=== PATIENT | female | born 1930 | race Caucasian/White ===

== ENCOUNTER 2017-05-29 08:00 | Outpatient (CLI) | payer MEDICAID, MEDICARE | END 2017-05-29 08:01 | disposition home or self-care (01) | LOC: BICRAD 08:00 | PROVIDERS: ATTEND Internal Medicine Endocrinology, Diabetes & Metabolism | DX: Z13.820 Encounter for screening for osteoporosis (principal); M81.0 Age-related osteoporosis without current pathological fracture; M47.26 Other spondylosis with radiculopathy, lumbar region; M41.86 Other forms of scoliosis, lumbar region; Z78.0 Asymptomatic menopausal state | CPT/HCPCS: 77080 ==

== ENCOUNTER 2018-01-24 14:48 | Day surgery (SDC) | payer MEDICARE, MEDICAID ==
[2018-01-24] MEDS ORDERED: Sodium Chloride 0.9% 10 ML ONE (14:55)
[2018-01-24 15:22] VITALS: BP 145/71; TEMP 98.6
[2018-01-24] MEDS ORDERED: Zoledronic Acid/Mannitol&Water 5 MG in Premix Bag 1 BAG IVPB SCH (16:00)
== END 2018-01-24 16:48 | disposition home or self-care (01) ==
LOC: ONC/OP 14:48
PROVIDERS: ATTEND Internal Medicine Rheumatology
DX: M81.0 Age-related osteoporosis without current pathological fracture (principal); Z88.5 Allergy status to narcotic agent; Z88.0 Allergy status to penicillin
CPT/HCPCS: 96365; A4216; J3489; J7050

== ENCOUNTER 2018-11-12 10:48 | Outpatient (CLI) | payer MEDICARE, MEDICAID ==
--- NOTE | 2018-11-12 11:54 | BD ---
DEXA BONE DENSITOMETRY: (Dual energy x-ray absorptiometry) DATE: 11/12/2018: 88-year old white female for age-related, post-menopausal, osteoporosis screening. weight: 140 lbs height: 64.5 in. age of menopause: 40 FINDINGS: There is severe levoscoliosis of the lumbar spine, resulting in asymmetrically severe, right-sided sc lerotic degenerative changes, which elevate the bone mineral density, thereby resulting in under-estimation of the fracture risk. The bone mineral density (BMD) is given in grams per square centimeter (g/cm2): LUMBAR SPINE: BMD (g/cm^2) T score Z score L1: 1.054 0.6 does not register L2: 1.133 1.0 does not register L3: 1.201 1.1 does not register L4: 1.194 1.2 does not register Total: 1.147 0.9 does not register HIP: BMD (g/cm^2) T score Z score Femoral neck: 0.582 -2.4 does not register Total: 0.630 -2.6 does not register IMPRESSION: 1) Although the bone mineral density of the lumbar spine registers in the normal range compared to a young adult, this is elevated due to the severe sclerotic degenerative changes related to the severe levoscoliosis and spondylosis. Therefore, the true fracture risk for the lumbar spine cannot b e accurately assessed. 2) The bone mineral density of the femoral neck is osteoporotic. Fracture risk is high.
== END 2018-11-12 10:49 | disposition home or self-care (01) ==
LOC: BICMAMMO 10:48
PROVIDERS: ATTEND Internal Medicine Rheumatology
DX: M81.0 Age-related osteoporosis without current pathological fracture (principal); M47.816 Spondylosis without myelopathy or radiculopathy, lumbar region; M41.9 Scoliosis, unspecified
CPT/HCPCS: 77080

== ENCOUNTER 2019-04-12 14:35 | Inpatient (IN) | payer MEDICARE, MEDICAID ==
[2019-04-12 15:47] LABS: INR-International Normal Ratio 1.2; PTT 32.1 SEC (22.9-36.1)
[2019-04-12 15:48] LABS: Troponin I Less than 0.010 ng/mL (< 0.028)
[2019-04-12] MEDS ORDERED: Enoxaparin Sodium 60 MG/0.6 ML SYRINGE ONE (15:57)
[2019-04-12] MEDS ORDERED: Acetaminophen 500 MG TAB ONE (15:57)
[2019-04-12] MEDS ORDERED: Senokot S 8.6-50 MG TAB PO PRN (17:59)
[2019-04-12] MEDS ORDERED: Diltiazem 125 MG in Sodium Chloride 0.9% 100 ML IVPB SCH (18:15)
[2019-04-12] MEDS ORDERED: traMADol HCl 50 MG TAB ONE (18:45)
[2019-04-12 19:05] LABS: Troponin I Less than 0.010 ng/mL (< 0.028)
[2019-04-12] MEDS: Sodium Chloride 0.9% 1,000 ML IV SCH (21:00)
[2019-04-12] MEDS: Acetaminophen 325 MG TAB PO PRN (21:06)
[2019-04-13 00:09] VITALS: BMI 16.9
[2019-04-13 04:31] LABS: #Eosinphils 0.1 thou/uL (0.0-0.7); #Monocytes 0.6 thou/uL (0.11-0.59); #Neutrophils 4.3 thou/uL (1.40-6.50); %Basophils 0.7 % (0.0-1.0); %Eosinophils 1.3 % (0.0-10.0); %Lymphocytes 17.3 % (21.0-51.0); %Monocytes 9.3 % (0.0-10.0); %Neutrophils 71.4 % (42.0-75.0); Hemoglobin 11.6 g/dL (12.0-16.0); Mean Corpuscular HGB CONC 33.2 g/dL (32.0-36.0); Mean Corpuscular Hemoglobin 29.1 pg (27.0-31.0); Mean Corpuscular Volume 87.7 fL (78.0-98.0); Mean Platelet Volume 7.1 fL (7.4-10.4); Platelet Count 256 thou/uL (130-400); RBC Distribution Width 13.3 % (11.5-14.5); Red Blood Cell (RBC) Count 3.99 mill/uL (4.20-5.40)
[2019-04-13 04:52] LABS: Anion Gap 16 mmol/L (10-20); BUN (Urea Nitrogen) 18 mg/dL (9.8-20.1); Calc. Creatinine Clearance 37 mL/min (70-130); Calcium 9.2 mg/dL (7.8-10.44); Carbon Dioxide 25 mmol/L (23-31); Chloride 103 mmol/L (98-107); Estimated GFR-MDRD 59; Potassium 3.9 mmol/L (3.5-5.1); Sodium 140 mmol/L (136-145)
[2019-04-13 04:55] LABS: Glucose 49 mg/dL (83-110)
[2019-04-13 07:16] LABS: Magnesium 1.8 mg/dL (1.6-2.6); Phosphorus 3.3 mg/dL (2.3-4.7)
[2019-04-13] MEDS ORDERED: traMADol HCl 50 MG TAB PO PRN (07:51)
[2019-04-13] MEDS ORDERED: Meclizine HCl 25 MG TAB PO PRN (07:51)
[2019-04-13] MEDS ORDERED: ALPRAZolam 0.25 MG TAB PO PRN (09:17)
[2019-04-13] MEDS: Enoxaparin Sodium 60 MG/0.6 ML SYRINGE SC SCH ×2 (09:23→20:50)
[2019-04-13] MEDS: Loratadine 10 MG TAB PO SCH (09:24)
[2019-04-13] MEDS: Hydroxychloroquine Sulfate 200 MG TAB PO SCH (09:24)
[2019-04-13] MEDS: Acetaminophen 325 MG TAB PO PRN (09:25)
[2019-04-13] MEDS: Gabapentin 100 MG CAP PO SCH ×2 (09:25→20:49)
[2019-04-13] MEDS: Aspirin Chewable 81 MG TAB PO SCH (09:26)
[2019-04-13 10:13] LABS: Hemoglobin 12.3 g/dL (12.0-16.0); Platelet Count 253 thou/uL (130-400)
--- NOTE | 2019-04-13 11:35 | PDOC.HOSPP ---
- Subjective Subjective: Has felt anxious this morning. Says she feels like her chest is "caving in". - Objective Vital Signs & Weight: Vital Signs (12 hours) Temp Pulse Resp BP Pulse Ox 04/13/19 10:59 97.4 F L 87 17 167/77 H 65 L 04/13/19 07:32 97.9 F 99 18 128/75 93 L 04/13/19 03:19 98.3 F 82 14 109/57 L 94 L 04/13/19 00:52 96 Weight Weight 114 lb 4.8 oz I&O: 04/12/19 04/13/19 04/14/19 06:59 06:59 06:59 Intake Total 845 Output Total 100 Balance 745 Result Diagrams: 04/13/19 09:57 04/13/19 09:57 Additional Labs: Accuchecks 04/13/19 04/13/19 04/13/19 08:04 07:31 05:45 POC Glucose 143 H 143 H 107 Hospitalist ROS - Medication Medications: Active Medications Generic Name Dose Route Start Last Admin Trade Name Freq PRN Reason Stop Dose Admin Acetaminophen 650 mg 04/12/19 17:56 04/13/19 09:25 Tylenol PO 650 mg Q4H PRN Administration Headache/Fever/Mild Pain (1-3) Alprazolam 0.25 mg 04/13/19 09:17 04/13/19 09:57 Xanax PO 0.25 mg TIDPRN PRN Administration Anxiety Aspirin 81 mg 04/13/19 09:00 04/13/19 09:26 Aspirin Chewable PO 81 mg DAILY STEFFEN Administration Cholecalciferol 1,000 units 04/13/19 09:00 04/13/19 09:24 Vitamin D3 PO 1,000 units DAILY STEFFEN Administration Enoxaparin Sodium 50 mg 04/13/19 09:00 04/13/19 09:23 Lovenox SC 50 mg 0900,2100 STEFFEN Administration Gabapentin 100 mg 04/13/19 09:00 04/13/19 09:25 Neurontin PO 100 mg BID STEFFEN Administration Hydroxychloroquine Sulfate 200 mg 04/13/19 09:00 04/13/19 09:24 Plaquenil PO 200 mg DAILY STEFFEN Administration Sodium Chloride 1,000 mls @ 50 mls/hr 04/12/19 18:30 04/12/19 21:00 Normal Saline 0.9% IV 1,000 mls .Q20H STEFFEN Administration Levofloxacin 500 mg 04/13/19 06:00 04/13/19 05:31 Levaquin PO 500 mg 0600 STEFFEN Administration Loratadine 10 mg 04/13/19 09:00 04/13/19 09:24 Claritin PO 10 mg DAILY STEFFEN Administration Meclizine HCl 25 mg 04/13/19 07:51 04/13/19 09:24 Antivert PO 25 mg TIDPRN PRN Administration Dizziness Sodium Chloride 10 ml 04/12/19 21:00 04/13/19 09:23 Flush - Normal Saline IVF 10 ml Q12HR STEFFEN Administration - Exam General Appearance: NAD, awake alert Neck: supple, symmetric, no JVD, no thyromegaly, no lymphadenopathy, no carotid bruit Heart: no murmur, no gallops, no rubs, normal peripheral pulses, irregular Respiratory: CTAB, no wheezes, no rales, no ronchi, normal chest expansion, no tachypnea, normal percussion Gastrointestinal: soft, non-tender, non-distended, normal bowel sounds, no palpable masses, no hepatomegaly, no splenomegaly, no bruit Skin: normal turgor Neurological: cranial nerve grossly intact Neurological - other findings: Parkinson like tremor of UE's. Psychiatric - other findings: anxious. Hosp A/P (1) Atrial fibrillation with rapid ventricular response Code(s): I48.91 - UNSPECIFIED ATRIAL FIBRILLATION Status: Acute (2) HTN (hypertension) Code(s): I10 - ESSENTIAL (PRIMARY) HYPERTENSION Status: Acute (3) Anxiety Code(s): F41.9 - ANXIETY DISORDER, UNSPECIFIED Status: Acute (4) Rib fracture Code(s): S22.39XA - FRACTURE OF ONE RIB, UNSP SIDE, INIT FOR CLOS FX Status: Acute - Plan Rate is controlled. Weaning per dilt gtt per cards. Had an episode of hypoglycemia this morning. Unclear if this is related to her feeling of anxiety. VSS and blood glucose is improved. EKG ordered by cards. Continue home meds. Looks like she had some type of "delusional" disorder going back to 2017. Question whether it might be Lewy Body dementia given the tremor. Will discuss with the patient's family when they arrive. Discussed code status. She would prefer to wait until her son gets her. She was clear she did not want to be on long-term support. At some point there was concern about aspiration pneumonitis. This was seen on CT done on 04/05 for rib fx. RUL. No evidence of that. On Levaquin. Will continue for now, but can likely DC if nothing more develops by tomorrow. Recent fall with rib fx. PRN pain meds.
--- NOTE | 2019-04-13 13:54 | PDOC.FMACP ---
Advance Care Planning - Problem (1) Atrial fibrillation with rapid ventricular response Status: Acute Code(s): I48.91 - UNSPECIFIED ATRIAL FIBRILLATION (2) HTN (hypertension) Status: Acute Code(s): I10 - ESSENTIAL (PRIMARY) HYPERTENSION (3) Anxiety Status: Acute Code(s): F41.9 - ANXIETY DISORDER, UNSPECIFIED (4) Rib fracture Status: Acute Code(s): S22.39XA - FRACTURE OF ONE RIB, UNSP SIDE, INIT FOR CLOS FX (5) Tremor Status: Acute Code(s): R25.1 - TREMOR, UNSPECIFIED - Note Participants: patient, family, surrogate decision-maker Summary: Advanced Care Planning was discussed. The diagnosis, prognosis and goals of care were discussed. Appropriate forms and documentation to accomplish the goals of care were discussed. All questions were answered. Patient has a directive. Her son is her POA. I reviewed the Directive and we all discussed her end of life wishes. She does desire full resuscitative efforts, but does not want to be on long-term life support. The appropriate documents were entered into her record. Time Spent (mins): 17
--- NOTE | 2019-04-13 14:30 | EKG ---
Test Reason : Blood Pressure : / mmHG Vent. Rate : 079 BPM Atrial Rate : 079 BPM P-R Int : 132 ms QRS Dur : 082 ms QT Int : 406 ms P-R-T Axes : 064 044 053 degrees QTc Int : 465 ms Sinus rhythm with occasional Premature ventricular complexes Otherwise normal ECG Confirmed by PENG GLEZ, ESVIN ([id number]), mapping editor ROXANNE MESA ([id number]) on 04/13/2019 2:29:42 PM Referred By: Confirmed By:ESVIN KHOURY MD
[2019-04-13] MEDS: Sodium Chloride 0.9% 1,000 ML IV SCH (17:07)
[2019-04-13] MEDS: traMADol HCl 50 MG TAB PO PRN (18:08)
[2019-04-13] MEDS ORDERED: risperiDONE 1 MG TAB PO SCH (21:00)
[2019-04-13] MEDS ORDERED: Diltiazem HCl SR 60 mg Capsule PO SCH (21:00)
--- NOTE | 2019-04-13 22:42 | CON ---
DATE OF CONSULTATION: HISTORY OF PRESENT ILLNESS: Jaleesa Villasenor is an 88-year-old white female, who was admitted with atrial fibrillation with fast ventricular response. She was evaluated by Dr. Munoz in 2007 for chest discomfort, had a normal Cardiolite and he has not seen her since that time. She went to the hospital in [place] with feeling a racing heartbeat and some mild chest pressure and shortness of breath. She was given 20 mg Cardizem IV, placed on a Cardizem drip 5 mg/hour and transferred. She has since converted to sinus rhythm. She denies any previous history of cardiac arrhythmias. It is of note that approximately 1 week ago she fell and sustained a rib fracture. She states she has had several falls in the past. PAST MEDICAL HISTORY: Hyperparathyroidism, hypertension, hyperlipidemia. PAST SURGICAL HISTORY: Cholecystectomy, history of splenic artery aneurysm, hernia repair, hysterectomy. SOCIAL HISTORY: She does not smoke or drink. FAMILY HISTORY: Unremarkable. MEDICATIONS: 1. Amlodipine 5 mg daily. 2. Aspirin 81 daily. 3. Flonase nasal spray. 4. Gabapentin 100 b.i.d. 5. Plaquenil 1 tablet daily. 6. Claritin 10 mg daily. 7. Meclizine 25 t.i.d. p.r.n. 8. Aleve q.6 hours p.r.n. 9. Prilosec 20 daily. 10. Risperdal 1 mg at bedtime. 11. Tramadol p.r.n. ALLERGIES: ORANGE JUICE, CODEINE, PENICILLIN, PHENOBARBITAL. REVIEW OF SYSTEMS: Unremarkable except as noted above. PHYSICAL EXAMINATION: VITAL SIGNS: 174/84, pulse of 86 (she has not received any amlodipine today). PERRL. NECK: Supple. CHEST: Clear. CARDIAC: S1 and S2 normal without any S3 or S4. Carotid upstrokes normal without bruits. ABDOMEN: Normal bowel sounds without tenderness or organomegaly. EXTREMITIES: Revealed no clubbing, cyanosis, or edema. NEUROLOGIC: Grossly intact. LABORATORY DATA: EKG reveals atrial fibrillation with fast ventricular response of 108 per minute. Cardiac enzymes are unremarkable. Hemoglobin 11.6, hematocrit 35.0, white count 6000, platelets 256,000. Sodium 140, potassium 3.9, chloride 103, carbon dioxide 25, BUN 18, creatinine 0.90, glucose this morning was 49. Cortisol is normal. BNP 139.0. IMPRESSION: 1. New onset atrial fibrillation, converted with intravenous Cardizem. 2. History of falls, most recently with rib fracture. 3. Hypertension. 4. Hyperparathyroidism. PLAN: Ms. Villasenor has CHADS-VASc score of greater than 2; however, she is a poor anticoagulation candidate with history of falls. To continue Lovenox while she is here in the hospital would be appropriate. However, I would not send her home on anticoagulation. Since this is her 1st episode, we would discontinue the amlodipine and instead will place her on Cardizem in the hopes of controlling atrial fibrillation rates in the future, if she should so have that. Echocardiogram will be reviewed. Job ID: [id number]
[2019-04-14] MEDS: traMADol HCl 50 MG TAB PO PRN ×2 (05:43→12:39)
[2019-04-14 06:02] LABS: Hemoglobin 11.9 g/dL (12.0-16.0); Platelet Count 239 thou/uL (130-400)
[2019-04-14] MEDS: Loratadine 10 MG TAB PO SCH (08:24)
[2019-04-14] MEDS: Gabapentin 100 MG CAP PO SCH (08:24)
[2019-04-14] MEDS: Aspirin Chewable 81 MG TAB PO SCH (08:24)
[2019-04-14] MEDS: Hydroxychloroquine Sulfate 200 MG TAB PO SCH (08:24)
[2019-04-14] MEDS: Dronedarone HCl 400 MG TAB PO SCH ×2 (08:24→16:09)
[2019-04-14] MEDS: Enoxaparin Sodium 60 MG/0.6 ML SYRINGE SC SCH (08:25)
[2019-04-14 11:35] VITALS: TEMP 98.2
[2019-04-14] MEDS: Sodium Chloride 0.9% 1,000 ML IV SCH (12:40)
[2019-04-14 17:01] VITALS: BP 130/63
--- NOTE | 2019-04-15 08:18 | HP ---
CHIEF COMPLAINT: Dizziness and shortness of breath. HISTORY OF PRESENT ILLNESS: The patient is a very pleasant 88-year-old female with a history of hypertension, who presents to the hospital with complaints of dizziness and shortness of breath going on for the past 1 week. The patient states that she fell last week on Monday with a mechanical fall and sustained a left rib fracture. She does have a history of osteoporosis and scoliosis. The patient states that prior to Monday, she has been having on and off dizziness, lightheadedness and shortness of breath at times. The patient states that when she walks, her shortness of breath improves. She denies any chest tightness, nausea, vomiting, or diarrhea. The patient stated that however for the past couple of days, she has been feeling more lightheaded and short of breath. The home health nurse came in yesterday, found the patient's heart rate to be elevated; however, that improved as the day went by. They decided to just wait and see if her symptoms would improve. However, they didn't and the patient started having elevated heart rate and became more lightheaded. At this time, she was brought into the [place] ER. The patient then was found to be in atrial fibrillation with rapid ventricular response. She was treated appropriately and transferred to our hospital for further evaluation. The patient says that she has been constipated and took some laxative and that on top that prune juice and has been having significant amount of bowel movements and however she feels that she has not been keeping up with her fluids either. PAST MEDICAL HISTORY: She has a history of hypertension, osteoporosis, and scoliosis. PAST SURGICAL HISTORY: She has had a hernia repair. She has had hysterectomy, cholecystectomy, and vein repair. REVIEW OF SYSTEMS: All negative except for the ones mentioned above in the HPI. FAMILY HISTORY: No significant family history. SOCIAL HISTORY: She denies any smoking, alcohol, or drug use. Full code. She did have secondhand smoking. PHYSICAL EXAMINATION: VITAL SIGNS: Temperature of 97.7, respiratory rate 20, heart rate 77, oxygen saturation 94% on room air, blood pressure 142/72. GENERAL: She is awake, alert, oriented x3. Does not appear in any distress. HEENT: Normocephalic and atraumatic. No lymphadenopathy noted. Pupils are equal and reactive to light. CV: S1 and S2 present. No murmurs, rubs, or gallops. ABDOMEN: Soft and nontender. Bowel sounds are present x2. EXTREMITIES: No edema. NEUROVASCULAR: No focal deficits noted. SKIN: She does have on her right second toe, a small skin opening and on her left toe, at the tip of the toe, she has a small erythema spot. LABORATORY DATA: Her laboratory results are as of the following: Her WBC is 5.0, hemoglobin of 11.9, hematocrit of 37.1. No bandemia noted. BNP was 139, potassium was 3.3, sodium of 141, BUN of 11, creatinine of 0.90. Calcium was 10.5. Chest x-ray did not show any acute abnormalities. Her troponins were 0.022. She did have a CT done last week, which indicated some pneumonitis, or patchy opacities in the right upper lobe, possible aspiration and also indicated a rib fracture on her left 7th rib. ASSESSMENT AND PLAN: The patient is a very pleasant 88-year-old female, who presents to the hospital with shortness of breath. 1. Atrial fibrillation with rapid ventricular response. The patient currently is rate controlled based on her CHADS Vasc score. I will start her on 1 mg/kg Lovenox, which can be changed to 2 and oral anticoagulation when okay with Cardiology. We will look at her echocardiogram and check a TSH. I will hydrate her gently with 1 L and continue to monitor. 2. Aspiration pneumonia, possible. She is currently not hypoxic. No elevated white count. I will get Speech to evaluate her. The patient does have scoliosis, which could be causing her to have some issues with swallowing. The patient does state that she coughs at times when she eats. I will continue her home medications of Levaquin that was prescribed by her primary care. 3. Hypertension. We will continue to monitor. 4. Hypercalcemia, which is mild at 10.5. I think this is possibly due to dehydration, I will start her on some gentle hydration. 5. Deep venous thrombosis prophylaxis. The patient is already on Lovenox. Job ID: [id number]
--- NOTE | 2019-04-15 23:16 | EKG ---
Test Reason : Blood Pressure : / mmHG Vent. Rate : 091 BPM Atrial Rate : 079 BPM P-R Int : 000 ms QRS Dur : 080 ms QT Int : 394 ms P-R-T Axes : 000 044 054 degrees QTc Int : 484 ms Multifocal atrial tachycardia Abnormal ECG When compared with ECG of 12-APR-2019 15:49, Multifocal atrial tachycardia has replaced Sinus rhythm Confirmed by SUNDAR ROTH M.D. ([id number]) on 04/15/2019 11:15:37 PM Referred By: LEAH Confirmed By:SUNDAR ROTH M.D.
--- NOTE | 2019-04-16 07:43 | DIS ---
DATE OF ADMISSION: 04/12/2019 DATE OF DISCHARGE: 04/14/2019 DISCHARGE DIAGNOSES: 1. New onset atrial fibrillation with rapid ventricular response. 2. Hypertension. 3. Left rib fracture secondary to recent mechanical fall. 4. Hypercalcemia with a history of hyperparathyroidism. 5. Hypokalemia. 6. Hypoglycemia. 7. Moderate mitral regurgitation. 8. Diastolic dysfunction. HISTORY OF PRESENT ILLNESS: This patient is 88-year-old female who presented initially to the emergency department in [place]. The patient was at home and had been experiencing some lightheadedness, weakness, and dizziness. Home health nurse evaluated the patient, noted tachycardia and sent her to the Emergency Department in [place]. There, she was found to be in atrial fibrillation with rapid ventricular response. She was started on a Cardizem bolus and drip and subsequently had converted to sinus rhythm and was transferred to this facility. Here, she remained on a Cardizem drip until seen by Cardiology. At that point, she was transitioned off and over to Multaq and initially had some anticoagulation. Had a conversation with the patient and her sons regarding the risk and benefit of anticoagulation in this situation; however, Cardiology recommended against it given her recent fall and rib fracture that had been confirmed on imaging just one week prior. She had an echocardiogram performed which revealed normal ejection fraction at 50% to 55% with a suggestion of diastolic dysfunction and moderate aortic regurgitation. Symptomatically, the patient was back to baseline and felt to be stable for discharge. Of note, the patient did originally have a mild hypercalcemia on admission, which improved with some hydration. She had mild hypokalemia that improved with repletion and one episode of hypoglycemia of unclear etiology. PHYSICAL EXAMINATION: VITAL SIGNS: On the day of discharge, temperature was 98.2, pulse 69, respirations 17, O2 saturation 97% on room air, BP is 130/63. GENERAL APPEARANCE: Age appropriate. No distress. Very pleasant. HEART: Regular without murmurs. LUNGS: Clear bilaterally. ABDOMEN: Soft, nontender, and nondistended. Positive bowel sounds. No masses. No organomegaly. EXTREMITIES: No cyanosis, clubbing, or edema. DISPOSITION: The patient is discharged to home. ACTIVITY: She is to have activity as tolerated. DIET: She will be on a heart healthy diet. She had OT/PT. MEDICATIONS: She will be on: 1. Diltiazem CD 240 mg daily. 2. Multaq 400 mg daily. She will continue with: 1. Omeprazole 20 mg daily. 2. Loratadine 10 mg a day. 3. Norvasc 5 mg daily. 4. Vitamin D3 1000 units daily. 5. Gabapentin 100 mg b.i.d. 6. Aspirin 81 mg daily. 7. Tylenol 650 p.r.n. 8. Meclizine 25 mg q.6 p.r.n. 9. Hydroxychloroquine one p.o. daily, 200 mg. 10. Flonase daily. 11. Naproxen p.r.n. 12. Tramadol p.r.n. 13. Risperdal 1 mg at bedtime. FOLLOWUP: She is to follow up with Dr. Valles in 7 days, Dr. Gardner in 2 to 3 weeks. Time spent in discharge activities was greater than 30 min. Job ID: [id number] MTDD
--- NOTE | 2019-04-16 23:06 | PQF ---
[employer] Accounting Specialist [employer] Reports [employer] MAYA Hagen KARISHMA [id number] [facility]288 [id number] CLINICAL DOCUMENTATION CLARIFICATION FORM: POST DISCHARGE Addendum to original discharge summary date: ____ Late entry note date: __ DATE: 04/16/2019 ATTN:ALFREDITO THURSTON10 Please exercise your independent, professional judgment in responding to the clarification form. Clinical indicators are provided on the bottom of this form for your review Please check appropriate box(s) to clarify if the following diagnosis has been ruled in or ruled out: Aspiration pneumonia [ ] Ruled in diagnosis [ ] Continue to treat [ ] Resolved [ x ] Ruled out diagnosis [ ] Cannot rule out diagnosis [ ] Other diagnosis [ ] Unable to determine For continuity of documentation, please document condition throughout progress notes and discharge summary. Thank You. CLINICAL INDICATORS - SIGNS / SYMPTOMS / LABS - Aspiration pneumonia, possible , she is currently not hypoxic- H&P, BOBBICHEMA PAYTONALFREDITO - Temp:97.7, RR:20, HR:77-H&P, [facility] WBC: 5.0-H&P, [facility] - patient does have scoliosis, which could be causing her to have some issue with swallowing-H&P, BOBBIALFREDITO PAYTON RISK FACTORS -hx of rib fracture- Hospital PN, 04/13, Maggie Carl MD -[facility]: Scoliosis-H&P, BOBBIALFREDITO PAYTON TREATMENTS - Levaquin-H&P, 04/12, [facility] (This form is maintained as a part of the permanent medical record) 2014 [employer]. All Rights Reserved Rakiyhannan Kumaresan [not provided] [not provided] MTDD
--- NOTE | 2019-04-18 10:36 | PQF ---
[employer] Operator Crystal Reports Winform ViewerMAYA BARROS KARISHMA [id number] [address] [place] [address] [id number] CLINICAL DOCUMENTATION CLARIFICATION FORM: POST DISCHARGE Addendum to original discharge summary date: ____ Late entry note date: __ DATE: 04/18/2019 ATTN:ALFREDITO THURSTON Please exercise your independent, professional judgment in responding to the clarification form. Clinical indicators are provided on the bottom of this form for your review Please check appropriate box(s): BMI < 20 with associated diagnosis of: (check one) [ ] Under weight [ ] Other diagnosis [ ] Unable to determine For continuity of documentation, please document condition throughout progress notes and discharge summary. Thank You. BMI < 18.5Under weight = 18.5 - 24.9Healthy = 25.0 - 29.9Slightly Overweight = 30.0 - 34.9Obese/Class I = 35.0 - 39.9Severely Obese/Class II = 40.0 and OverMorbidly Obese/Class III CLINICAL INDICATORS - SIGNS / SYMPTOMS / LABS -BMI of 16.9-FNS assessment, 04/13 -Height: 1.75m, Current weight: 51.85kg-FNS assessment, 04/13 -Average PO intake: 75% breakfast-FNS assessment, 04/13 Risk factors: -PSH: Cholecystectomy-H&P, 04/12, ALFREDITO THURSTON TREATMENTS: -Diet order: Heart healthy-FNS assessment, 04/13 [employer] Operator [employer] Reports Winform Viewer (This form is maintained as a part of the permanent medical record) 2014 [employer]. All Rights Reserved Aidan Ko [not provided] [not provided] RUDYD
== END 2019-04-14 18:00 | disposition home health service (06) | DRG 309 ==
LOC: ERS 14:35 → 2NO 19:54
PROVIDERS: ADMIT Internal Medicine; ATTEND Internal Medicine
DX: I48.91 Unspecified atrial fibrillation (principal); S22.32XA Fracture of one rib, left side, initial encounter for closed fracture; I10 Essential (primary) hypertension; R29.6 Repeated falls; M81.0 Age-related osteoporosis without current pathological fracture; M41.9 Scoliosis, unspecified; E86.0 Dehydration; F41.9 Anxiety disorder, unspecified; E78.5 Hyperlipidemia, unspecified; G31.83 Neurocognitive disorder with Lewy bodies; F02.80 Dementia in other diseases classified elsewhere, unspecified severity, without behavioral disturbance, psychotic disturbance, mood disturbance, and anxiety; K21.9 Gastro-esophageal reflux disease without esophagitis; E16.2 Hypoglycemia, unspecified; R25.1 Tremor, unspecified; E83.52 Hypercalcemia; Z90.710 Acquired absence of both cervix and uterus; Z90.49 Acquired absence of other specified parts of digestive tract; Z87.81 Personal history of (healed) traumatic fracture; Z88.0 Allergy status to penicillin; Z88.8 Allergy status to other drugs, medicaments and biological substances; Z91.018 Allergy to other foods
CPT/HCPCS: 36415; 36416; 80048; 82533; 82565; 83735; 84100; 85014; 85018; 85025; 85049; 85610; 85730; 93005; 93010; 93306; 96365; 96366; 96372; J1650; J3490; J8597

== ENCOUNTER 2019-12-09 13:26 | Outpatient (CLI) | payer MEDICARE, MEDICAID ==
--- NOTE | 2019-12-09 14:09 | BD ---
BONE DENSITOMETRY USING DEXA: HISTORY: Osteoporosis. FINDINGS: Lumbar Spine: BMD (g/cm2) L1 0.985 T-Score: 0.0 L2 1.093 T-Score: 0.6 L3 1.154 T-Score: 0.6 L4 1.069 T-Score: 0.1 L1-L4 1.076 T-Score: 0.3 Femoral Neck: 0.536 T-Score: -2.8 Total Femur: 9,586 T-Score: -2.8 There has been interval reduction of 6.2% in the BMD of the lumbar spine and a reduction of 5.4% in t he BMD of the proximal femur. Impression: Osteoporosis. POS: DINO
== END 2019-12-09 13:27 | disposition home or self-care (01) ==
LOC: BICMAMMO 13:26
PROVIDERS: ATTEND Internal Medicine Rheumatology
DX: M81.0 Age-related osteoporosis without current pathological fracture (principal)
CPT/HCPCS: 77080

== ENCOUNTER 2020-04-20 14:42 | Emergency (ER) | payer MEDICARE, MEDICAID, OTHER ==
[~2020-04-20 14:42] MED LIST: Iopamidol-370 76% 500 ML 1 ML ONE
[2020-04-20 15:19] LABS: #Lymphocytes 0.6 thou/uL (1.20-3.40); #Monocytes 0.9 thou/uL (0.11-0.59); #Neutrophils 5.2 thou/uL (1.40-6.50); %Eosinophils 0.5 % (0.0-10.0); %Lymphocytes 9.2 % (21.0-51.0); %Monocytes 13.8 % (0.0-10.0); %Neutrophils 76.5 % (42.0-75.0); Hemoglobin 11.1 g/dL (12.0-16.0); Mean Corpuscular HGB CONC 31.7 g/dL (32.0-36.0); Mean Corpuscular Hemoglobin 27.4 pg (27.0-31.0); Mean Corpuscular Volume 86.2 fL (78.0-98.0); Mean Platelet Volume 7.8 fL (7.4-10.4); Platelet Count 203 thou/uL (130-400); RBC Distribution Width 14.7 % (11.5-14.5); Red Blood Cell (RBC) Count 4.05 mill/uL (4.20-5.40); White Blood Cell (WBC) Count 6.8 thou/uL (4.8-10.8)
--- NOTE | 2020-04-20 15:22 | RAD ---
Chest one view HISTORY: Dyspnea. COMPARISON: 04/12/2019. FINDINGS: Cardiac silhouette is magnified by projection. Mediastinum is midline with aortic calcifica tion. Right hemidiaphragm remains markedly elevated. No lobar consolidation or evidence of pneumothorax. There are prominent degenerative changes of the s houlders. Degenerative changes and scoliotic curvature of the thoracic spine again demonstrated. Metallic clips overlie the gallbladder fossa. Oval dystrophic calcification projecting over the left abdomen is partially visualized. IMPRESSION : Right hemidiaphragm elevation and other chronic-type findings appear stable. Atherosclerosis.
[2020-04-20 15:40] LABS: ALT (SGPT) 16 U/L (8-55); AST (SGOT) 18 U/L (5-34); Albumin 3.6 g/dL (3.4-4.8); Alkaline Phosphatase 74 U/L (40-110); Anion Gap 14 mmol/L (10-20); BUN (Urea Nitrogen) 29 mg/dL (9.8-20.1); Bilirubin, Total 0.2 mg/dL (0.2-1.2); Calc. Creatinine Clearance 0 mL/min (70-130); Calcium 8.2 mg/dL (7.8-10.44); Carbon Dioxide 28 mmol/L (23-31); Chloride 104 mmol/L (98-107); Estimated GFR-MDRD 47; Globulin 2.6 g/dL (2.4-3.5); Glucose 93 mg/dL (83-110); Protein, Total 6.2 g/dL (6.0-8.3); Sodium 142 mmol/L (136-145)
[2020-04-20] MEDS ORDERED: Ketorolac Tromethamine 30 MG/ML VIAL ONE (16:36)
--- NOTE | 2020-04-20 17:10 | CT ---
CT PULMONARY ANGIOGRAM WITH IV CONTRAST AND 3D POSTPROCESSING: Date; 04/20/2020 HISTORY: Shortness of breath. FINDINGS: There is good contrast opacification of the pulmonary arterial vasculature without filling defects to suggest pulmonary embolism. There are vascular calcifications without aneurysm or dissection of the thoracic aorta. There is elevation of the right hemidiaphragm. There is a small left pleural effusion with adjacent atelectatic changes. There are mild patchy ground-glass opacities bilaterally. No pneu mothoraces or lobar consolidation seen. There are degenerative changes and scoliosis of the spine. Up per abdominal tomograms demonstrate changes of cholecystectomy. There is a peripherally calcified 2.3 cm splenic artery aneurysm. IMPRESSION: No CT evidence of pulmonary embolism. POS: OFF
[2020-04-21 11:25] LABS: SARS-CoV-2 MS2 Positive; SARS-CoV-2 N Gene Positive; SARS-CoV-2 S Gene Positive; SARS-CoV-2 by NAA DETECTED (NotDetected); SARS-CoV-2 orf1ab Positive
== END 2020-04-20 18:08 ==
LOC: ERS 14:42
DX: U07.1 COVID-19 (principal); E21.3 Hyperparathyroidism, unspecified; K21.9 Gastro-esophageal reflux disease without esophagitis; E78.5 Hyperlipidemia, unspecified; I10 Essential (primary) hypertension; M81.0 Age-related osteoporosis without current pathological fracture; I71.4 Abdominal aortic aneurysm, without rupture; Z79.899 Other long term (current) drug therapy; Z79.82 Long term (current) use of aspirin
CPT/HCPCS: 71045; 71275; 80053; 83880; 84484; 85025; 85379; 93005; U0003; 36415; 87635; 96374; J1885; Q9967

== ENCOUNTER 2020-04-26 16:19 | Inpatient (IN) | payer MEDICARE, MEDICAID ==
[2020-04-26 17:02] LABS: #Lymphocytes 0.5 thou/uL (1.20-3.40); #Monocytes 0.5 thou/uL (0.11-0.59); #Neutrophils 3.2 thou/uL (1.40-6.50); %Eosinophils 0.3 % (0.0-10.0); %Lymphocytes 12.6 % (21.0-51.0); %Monocytes 11.3 % (0.0-10.0); %Neutrophils 75.8 % (42.0-75.0); Hemoglobin 10.8 g/dL (12.0-16.0); Mean Corpuscular HGB CONC 30.8 g/dL (32.0-36.0); Mean Corpuscular Volume 84.2 fL (78.0-98.0); Mean Platelet Volume 8.6 fL (7.4-10.4); Platelet Count 163 thou/uL (130-400); RBC Distribution Width 14.5 % (11.5-14.5); Red Blood Cell (RBC) Count 4.16 mill/uL (4.20-5.40); White Blood Cell (WBC) Count 4.2 thou/uL (4.8-10.8)
[2020-04-26 17:22] LABS: ALT (SGPT) 20 U/L (8-55); AST (SGOT) 30 U/L (5-34); Albumin 3.4 g/dL (3.4-4.8); Alkaline Phosphatase 75 U/L (40-110); Anion Gap 15 mmol/L (10-20); BUN (Urea Nitrogen) 32 mg/dL (9.8-20.1); Bilirubin, Total 0.2 mg/dL (0.2-1.2); Calc. Creatinine Clearance 0 mL/min (70-130); Calcium 8.1 mg/dL (7.8-10.44); Carbon Dioxide 28 mmol/L (23-31); Chloride 105 mmol/L (98-107); Estimated GFR-MDRD 51; Glucose 83 mg/dL (83-110); Potassium 5.3 mmol/L (3.5-5.1); Protein, Total 6.4 g/dL (6.0-8.3); Sodium 143 mmol/L (136-145)
[2020-04-26] MEDS ORDERED: Dexamethasone 10 MG/ML VIAL ONE (17:41)
[2020-04-26] MEDS ORDERED: traMADol HCl 50 MG TAB ONE (17:41)
[2020-04-26 18:39] LABS: CKMB 1.2 ng/mL (0-6.6)
--- NOTE | 2020-04-26 20:08 | RAD ---
PORTABLE CHEST: Date: 04-26-2020 PROVIDED CLINICAL HISTORY: Shortness of breath FINDINGS: Comparison 04-19-2020. Cardiac and mediastinal silhouette is unchanged in appearance. Elevation of the right hemidiaphragm i s adjacent subsegmental atelectatic change appears similar. No newly developed consolidation, pleural fluid, or pneumothorax evident. IMPRESSION: Stable radiographic appearance of the chest. POS: BRIGID
[2020-04-26] MEDS ORDERED: Ondansetron ODT 4 MG TAB PO PRN (20:28)
[2020-04-26] MEDS ORDERED: Acetaminophen 325 MG TAB PO PRN (20:28)
[2020-04-26] MEDS ORDERED: Calcium Carbonate 500 MG ChewTAB PO PRN (20:28)
[2020-04-26] MEDS ORDERED: Ondansetron PF 4 MG/2 ML Vial IVP PRN (20:28)
[2020-04-26] MEDS ORDERED: Acetaminophen 650 MG Suppository PR PRN (20:28)
--- NOTE | 2020-04-26 20:44 | PDOC.HHP ---
Hospitalist HPI - History of Present Illness hypoxia History of Present Illness: despite been alert and ox3 patient is a poor historian and has very insigh into her medical conditions Case of an 89y/o year female with pmhx of hyperthryroidism, hld, htn, osteoporisis, resting tremors and atrial fibrillation on ac with aspirin who presents to the emergency department with dyspnea. apparently patient was luke gnosed with Covid about a week ago in our ED, but was deemed stable and was discharge to [place] [facility]. patient began with progressive dypsnea and decreasing 02 libra in 86-88% range at RA for which she was sent to hospital for further evaluation and management. patient denies any fever chills n/ diarrhea but also does not understand why she is on the hospital Hospitalist ROS - Review of Systems All other systems reviewed; all pertinent +/- noted in HPI/Subj Hospitalist History - Past Surgical History Past Surgical History: reports: Cholecystectomy, Hysterectomy, Hernia Repair - Family History Family History: reports: no pertinent history - Social History Smoking Status: Never smoker Alcohol: reports: None Drugs: reports: none - Exam General Appearance: NAD, awake alert Eye: PERRL, anicteric sclera ENT: normocephalic atraumatic, no oropharyngeal lesions Neck: supple, symmetric, no JVD Heart: RRR, no murmur, no gallops Respiratory: CTAB, no wheezes, no rales, no ronchi Gastrointestinal: soft, non-tender, non-distended Extremities: no cyanosis, no clubbing, no edema Skin: normal turgor, no lesions, no rashes Neurological: cranial nerve grossly intact, normal sensation to touch Musculoskeletal: normal tone, normal strength, no muscle wasting Psychiatric: normal affect, normal behavior, A&O x 3 Hospitalist Results - Labs Result Diagrams: 04/26/20 16:52 04/26/20 16:52 Lab results: WBC 4.2 thou/uL (4.8-10.8) L 04/26/20 16:52 Hgb 10.8 g/dL (12.0-16.0) L 04/26/20 16:52 Hct 35.0 % (36.0-47.0) L 04/26/20 16:52 MCV 84.2 fL (78.0-98.0) 04/26/20 16:52 Plt Count 163 thou/uL (130-400) 04/26/20 16:52 Neutrophils % 75.8 % (42.0-75.0) H 04/26/20 16:52 Sodium 143 mmol/L (136-145) 04/26/20 16:52 Potassium 5.3 mmol/L (3.5-5.1) H 04/26/20 16:52 Chloride 105 mmol/L (98-107) 04/26/20 16:52 Carbon Dioxide 28 mmol/L (23-31) 04/26/20 16:52 BUN 32 mg/dL (9.8-20.1) H 04/26/20 16:52 Creatinine 1.03 mg/dL (0.6-1.1) 04/26/20 16:52 Glucose 83 mg/dL (83-110) 04/26/20 16:52 Lactic Acid 0.7 mmol/L (0.5-2.2) 04/26/20 17:35 Calcium 8.1 mg/dL (7.8-10.44) 04/26/20 16:52 Total Bilirubin 0.2 mg/dL (0.2-1.2) 04/26/20 16:52 AST 30 U/L (5-34) 04/26/20 16:52 ALT 20 U/L (8-55) 04/26/20 16:52 Alkaline Phosphatase 75 U/L (40-110) 04/26/20 16:52 CK-MB (CK-2) 1.2 ng/mL (0-6.6) 04/26/20 17:35 Troponin I 0.034 ng/mL (< 0.028) H 04/26/20 17:35 Serum Total Protein 6.4 g/dL (6.0-8.3) 04/26/20 16:52 Albumin 3.4 g/dL (3.4-4.8) 04/26/20 16:52 Hospitalist H&P A/P - Problem (1) COVID-19 Code(s): U07.1 - COVID-19 Status: Acute (2) Acute respiratory failure Code(s): J96.00 - ACUTE RESPIRATORY FAILURE, UNSP W HYPOXIA OR HYPERCAPNIA Status: Acute (3) Hyperparathyroidism Code(s): E21.3 - HYPERPARATHYROIDISM, UNSPECIFIED Status: Acute (4) Atrial fibrillation with rapid ventricular response Code(s): I48.91 - UNSPECIFIED ATRIAL FIBRILLATION Status: Acute (5) HTN (hypertension) Code(s): I10 - ESSENTIAL (PRIMARY) HYPERTENSION Status: Acute (6) Tremor Code(s): R25.1 - TREMOR, UNSPECIFIED Status: Acute - Plan Plan: 89y/o female with the stated pmhx who present with worsening oxygenation due to covid 19 covid 19 - tested positive 1 wk ago - cxr clean - f/u inflmmation markers - id consulted - dvt prophylaxis acute respiratory failure - o2 supplementation - monitor 02 sat atrial fibrillation - diltiazem for rate control - telemetry - ac with aspirin - currently adequate ventricular rate htn - continue home meds
[2020-04-26 23:52] VITALS: BMI 19.2
[2020-04-27 06:28] LABS: ALT (SGPT) 18 U/L (8-55); AST (SGOT) 15 U/L (5-34); Albumin 3.5 g/dL (3.4-4.8); Alkaline Phosphatase 76 U/L (40-110); Anion Gap 13 mmol/L (10-20); BUN (Urea Nitrogen) 26 mg/dL (9.8-20.1); Band 4 % (5-11); Bilirubin, Total 0.2 mg/dL (0.2-1.2); CRP (Inflammatory) 8.67 mg/dL (= or < 0.5); Calc. Creatinine Clearance 46 mL/min (70-130); Calcium 8.2 mg/dL (7.8-10.44); Carbon Dioxide 30 mmol/L (23-31); Chloride 102 mmol/L (98-107); Estimated GFR-MDRD 66; Globulin 2.8 g/dL (2.4-3.5); Glucose 125 mg/dL (83-110); Hemoglobin 11.7 g/dL (12.0-16.0); Lymphocytes 11 % (21-51); MDiff Complete? YES; Mean Corpuscular Hemoglobin 28.6 pg (27.0-31.0); Mean Corpuscular Volume 83.9 fL (78.0-98.0); Mean Platelet Volume 8.5 fL (7.4-10.4); Monocytes 2 % (0-10); Neutrophil 83 % (42-75); Platelet Count 126 thou/uL (130-400); Platelet Morphology Comment Appears Adequate; Potassium 4.7 mmol/L (3.5-5.1); Protein, Total 6.3 g/dL (6.0-8.3); RBC Distribution Width 14.4 % (11.5-14.5); Red Blood Cell (RBC) Count 4.09 mill/uL (4.20-5.40); Sodium 140 mmol/L (136-145)
[2020-04-27] MEDS: Dexamethasone 4 mg/ml Vial SLOW IVP SCH (08:18)
[2020-04-27] MEDS ORDERED: Acetaminophen 325 MG TAB PO PRN (11:34)
[2020-04-27] MEDS ORDERED: Meclizine HCl 25 MG TAB PO PRN (11:34)
[2020-04-27] MEDS: traMADol HCl 50 MG TAB PO PRN (13:02)
[2020-04-27] MEDS: Dronedarone HCl 400 MG TAB PO SCH (16:15)
--- NOTE | 2020-04-27 16:20 | CON ---
DATE OF CONSULTATION: 04/27/2020 REASON FOR CONSULTATION: COVID pneumonia. HISTORY OF PRESENT ILLNESS: An 89-year-old, who has a history of atrial fibrillation, hypertension, and CHF with diastolic dysfunction. Last admission was on April 12 when she presented to the emergency room in [place] with lightheadedness, weakness, dizziness, and home health nurse noticed tachycardia. She was sent to the ER and found to be in atrial fibrillation on with RVR. Given Cardizem and then she was seen by Cardiology at [facility], transferred over to [facility] and anticoagulation was contraindicated and EF was normal. O2 saturations on discharge were 97% on room air and now, she comes back a few weeks later with worsening dyspnea. The patient was diagnosed with COVID about a week before and stayed home initially, but then became progressively dyspneic with hypoxemia, so she is admitted. Initial evaluation showed a BP 120/66, heart rate 67, respiratory rate 18, and temperature 99.2 with O2 saturation 95 on 2 L. Other findings included white cell count 4.2, hemoglobin 10.8, platelets 163, and 75% neutrophils. D-dimer 0.81. Sodium 143 and creatinine 1.03. Liver profile normal. CRP 8.67. Albumin 3.4. Two sets of blood cultures thus far no growth and she had a CT angio with no evidence of pulmonary embolism. Mild patchy ground-glass opacities bilaterally. Currently, she is on O2 nasal cannula 2 L and saturating at 98%. Appears comfortable at rest, oriented. Resting tremor in the right upper extremity. No headaches. Some cough intermittently. No sputum production. No chest pain. No back pain. No abdominal pain or diarrhea. No genitourinary symptoms. She is voiding in the diaper and the only neurological symptom is the tremor. PAST MEDICAL HISTORY: Hypertension, cholecystectomy, atrial fibrillation, hysterectomy, hyperthyroidism, osteoporosis, and CHF with diastolic dysfunction. FAMILY HISTORY: Noncontributory. SOCIAL HISTORY: Never smoker. Lives in [place]. No alcoholic beverage use. MEDICATIONS LIST: 1. Acetaminophen. 2. Inhalers. 3. Decadron. 4. Flonase. 5. Melatonin. 6. Risperdal. PHYSICAL EXAMINATION: VITAL SIGNS: T-max 98.3, blood pressure 160/70, heart rate 89, and O2 saturation 98 on 2 L nasal cannula. SKIN: No areas of skin breakdown. Peripheral IV access. No Martinez catheter. No lymphadenopathy. HEENT: Ocular movements conjugate. Dentures. NECK: Supple. LUNGS: With scattered inspiratory crackles. No wheezing. HEART: S1 and S2. Regular rate with a soft aortic murmur. ABDOMEN: Soft, not distended or tender. No ascites. No bladder distention. EXTREMITIES: No joint inflammatory activity. No edema. Resting tremor in the right upper extremity. Pulses 1+ in dorsalis pedis. NEUROLOGIC: She is awake. Her speech is kind of halting, but she does not have trouble finding words. Oriented. Recollection is fairly decent. LABORATORY DATA: Follow up sodium 140 and creatinine 0.82. Liver profile normal. CRP 8.67. Ferritin 78. D-dimer 0.81. ASSESSMENT AND PLAN: Atrial fibrillation, hypertension, hyperthyroidism, and COVID pneumonia [id number]. She is at 10 days of illness, not eligible for remdesivir, continue Decadron and oxygen supplementation. She could deteriorate going forward. We see a lot of those in older patients coming in with mild to moderate disease and quickly deteriorate within the first few days, so hopefully that is not going to happen. It does not look like she is on any anticoagulants and might consider enoxaparin prophylaxis. Job ID: [id number]
[2020-04-27] MEDS: Melatonin 3 MG TAB PO SCH (21:17)
[2020-04-27] MEDS: Gabapentin 100 MG CAP PO SCH (21:17)
[2020-04-27] MEDS: risperiDONE 1 MG TAB PO SCH (21:18)
[2020-04-27] MEDS: HYDROcodone/Acetaminophen 5/325 mg Tablet PO PRN (21:18)
--- NOTE | 2020-04-27 21:55 | PDOC.HOSPP ---
- Subjective Encounter Date: 04/27/20 Encounter Time: 17:15 Subjective: Patient seen and examined for respiratory failure due to COVID 19 pneumonia. No new complaints. Shortness of breath slightly better. Mild cough essentially dry. - Objective Vital Signs & Weight: Vital Signs (12 hours) Temp Pulse Resp BP Pulse Ox 04/27/20 16:00 98.4 F 76 18 147/69 H 97 04/27/20 13:36 98 04/27/20 13:03 89 04/27/20 12:00 98.3 F 83 18 166/70 H 99 Weight Weight 134 lb Result Diagrams: 04/27/20 05:34 04/27/20 05:34 Additional Labs: Abnormal Lab Results - Last 48 hrs 04/26/20 16:52: WBC 4.2 L, RBC 4.16 L, Hgb 10.8 L, Hct 35.0 L, MCH 26.0 L, MCHC 30.8 L, Neutrophils % 75.8 H, Lymphocytes % 12.6 L, Monocytes % 11.3 H, Lymphocytes # 0.5 L 04/26/20 16:52: Potassium 5.3 H, BUN 32 H, Albumin/Globulin Ratio 1.1 L 04/26/20 17:35: Troponin I 0.034 H 04/27/20 05:34: BUN 26 H, C-Reactive Protein 8.67 H 04/27/20 05:34: WBC 3.0 L, RBC 4.09 L, Hgb 11.7 L, Hct 34.3 L, Plt Count 126 L, Neutrophils % (Manual) 83 H, Band Neuts % (Manual) 4 L, Lymphocytes % (Manual) 11 L 04/27/20 05:34: D-Dimer 0.81 H Microbiology - Entire Visit 04/26/20 17:35 Venous blood - Left Arm Blood Culture - Preliminary Specimen has been received and culture in progress. No Growth to date. 04/26/20 17:35 Venous blood - Right Hand Blood Culture - Preliminary Specimen has been received and culture in progress. No Growth to date. Radiology Reviewed by me: Yes (Chest x-raypneumonia) Hospitalist ROS - Review of Systems Cardiovascular: denies: chest pain, palpitations, orthopnea, paroxysmal noc. dyspnea, edema, light headedness, other Gastrointestinal: denies: nausea, vomiting, abdominal pain, diarrhea, constipati on, melena, hematochezia, other - Medication Medications: Active Medications Generic Name Dose Route Start Last Admin Trade Name Freq PRN Reason Stop Dose Admin Hydrocodone Bitart/Acetaminophen 1 tab 04/26/20 20:28 04/27/20 21:18 Hydrocodone/Acetaminophen 5/325 Mg Tablet PO 1 tab Q4H PRN Administration Moderate Pain (4-6) Dexamethasone 6 mg 04/27/20 09:00 04/27/20 08:18 Dexamethasone 4 Mg/Ml Vial SLOW IVP 6 mg DAILY STEFFEN Administration Dronedarone 400 mg 04/27/20 17:00 04/27/20 16:15 Dronedarone Hcl 400 Mg Tab PO 400 mg BID-WM STEFFEN Administration Gabapentin 100 mg 04/27/20 21:00 04/27/20 21:17 Gabapentin 100 Mg Cap PO 100 mg BID STEFFEN Administration Melatonin 3 mg 04/27/20 21:00 04/27/20 21:17 Melatonin 3 Mg Tab PO 3 mg HS STEFFEN Administration Risperidone 1 mg 04/27/20 21:00 04/27/20 21:18 Risperidone 1 Mg Tab PO 1 mg HS STEFFEN Administration Tramadol HCl 50 mg 04/27/20 11:34 04/27/20 13:02 Tramadol Hcl 50 Mg Tab PO 50 mg Q4H PRN Administration Moderate Pain (4-6) - Exam General Appearance: ill appearing Neck: supple, no JVD Heart: RRR, no gallops, no rubs, normal peripheral pulses Respiratory: no wheezes, rales, rhonchi, tachypneic Gastrointestinal: soft, non-tender, normal bowel sounds, no guarding, no rigidity Extremities: no cyanosis, no clubbing Neurological: no new deficit Musculoskeletal: generalized weakness (In) Psychiatric: normal affect, A&O x 3 Hosp A/P - Plan DVT proph w/lovenox, DVT proph w/SCDs Acute hypoxic respiratory failure due to COVID 19 pneumonia Chronic atrial fibrillationon aspirin Hypertension Hypertension Chronic diastolic heart failure Chronic anemia suspected due to nutritional deficiency Leukopenia/thrombocytopenia CKD stage II Hyperkalemia Plan: Continue with dexamethasone. Infectious disease input appreciated. Currently not eligible for Remdesivir. Continue O2 supplementation. Home medicationincluding Cardizem, multi, Plaquenil, PPIs and risperidone. Plan discussed with the patient, son and [id number]. DNR verified with all of the family members. Check a.m. labs including inflammatory markers. Physical therapy evaluation per family request. Hyperkalemia improving. Family requested pulmonary consultation due to progressive worsening shortness of breath over the past 6-8 months. Continue other medications as above
[2020-04-28 05:42] LABS: #Lymphocytes 0.5 thou/uL (1.20-3.40); #Monocytes 0.5 thou/uL (0.11-0.59); %Basophils 0.7 % (0.0-1.0); %Eosinophils 0.2 % (0.0-10.0); %Lymphocytes 11.5 % (21.0-51.0); %Neutrophils 75.6 % (42.0-75.0); Hemoglobin 10.8 g/dL (12.0-16.0); Mean Corpuscular HGB CONC 32.6 g/dL (32.0-36.0); Mean Corpuscular Volume 82.8 fL (78.0-98.0); Mean Platelet Volume 8.4 fL (7.4-10.4); Platelet Count 154 thou/uL (130-400); RBC Distribution Width 14.2 % (11.5-14.5); Red Blood Cell (RBC) Count 4.02 mill/uL (4.20-5.40)
[2020-04-28 06:06] LABS: ALT (SGPT) 20 U/L (8-55); AST (SGOT) 15 U/L (5-34); Albumin 3.2 g/dL (3.4-4.8); Alkaline Phosphatase 64 U/L (40-110); Anion Gap 11 mmol/L (10-20); BUN (Urea Nitrogen) 30 mg/dL (9.8-20.1); Bilirubin, Total 0.2 mg/dL (0.2-1.2); CRP (Inflammatory) 3.59 mg/dL (= or < 0.5); Calc. Creatinine Clearance 49 mL/min (70-130); Calcium 8.2 mg/dL (7.8-10.44); Carbon Dioxide 29 mmol/L (23-31); Chloride 104 mmol/L (98-107); Estimated GFR-MDRD 71; Globulin 2.4 g/dL (2.4-3.5); Glucose 120 mg/dL (83-110); Magnesium 2.1 mg/dL (1.6-2.6); Potassium 4.8 mmol/L (3.5-5.1); Protein, Total 5.6 g/dL (6.0-8.3); Sodium 139 mmol/L (136-145)
[2020-04-28] MEDS: Dexamethasone 4 mg/ml Vial SLOW IVP SCH (08:51)
[2020-04-28] MEDS: Enoxaparin Sodium 40 MG/0.4 ML SYRINGE SC SCH (08:51)
[2020-04-28] MEDS: Aspirin Chewable 81 MG TAB PO SCH (08:52)
[2020-04-28] MEDS: Gabapentin 100 MG CAP PO SCH ×2 (08:52→20:06)
[2020-04-28] MEDS: Hydroxychloroquine Sulfate 200 MG TAB PO SCH (08:52)
[2020-04-28] MEDS: Dronedarone HCl 400 MG TAB PO SCH ×2 (08:52→17:41)
[2020-04-28] MEDS: Loratadine 10 MG TAB PO SCH (08:52)
[2020-04-28] MEDS: traMADol HCl 50 MG TAB PO PRN ×2 (08:53→17:41)
[2020-04-28] MEDS: Cholecalciferol 1,000 UNITS (25 MCG) TAB PO SCH (08:54)
[2020-04-28] MEDS: Fluticasone Propionate Nasal Spray 16 gm Bottle NASAL SCH (08:54)
[2020-04-28] MEDS: HYDROcodone/Acetaminophen 5/325 mg Tablet PO PRN ×2 (13:24→20:25)
--- NOTE | 2020-04-28 14:49 | PDOC.HOSPP ---
- Subjective Encounter Date: 04/28/20 Encounter Time: 09:00 Subjective: no trouble breathing is eating well normally ambulates well per patient - Objective Vital Signs & Weight: Vital Signs (12 hours) Temp Pulse Resp BP Pulse Ox 04/28/20 08:00 98 04/28/20 04:40 98.6 F 74 18 168/79 H 98 Weight Weight 134 lb I&O: 04/27/20 04/28/20 04/29/20 06:59 06:59 06:59 Intake Total 490 Balance 490 Result Diagrams: 04/28/20 05:30 04/28/20 05:30 Hospitalist ROS - Medication Medications: Active Medications Generic Name Dose Route Start Last Admin Trade Name Freq PRN Reason Stop Dose Admin Hydrocodone Bitart/Acetaminophen 1 tab 04/26/20 20:28 04/28/20 13:24 Hydrocodone/Acetaminophen 5/325 Mg Tablet PO 1 tab Q4H PRN Administration Moderate Pain (4-6) Aspirin 81 mg 04/28/20 09:00 04/28/20 08:52 Aspirin Chewable 81 Mg Tab PO 81 mg DAILY STEFFEN Administration Cholecalciferol 1,000 units 04/28/20 09:00 04/28/20 08:54 Cholecalciferol 1,000 Units (25 Mcg) Tab PO 1,000 units DAILY STEFFEN Administration Dexamethasone 6 mg 04/27/20 09:00 04/28/20 08:51 Dexamethasone 4 Mg/Ml Vial SLOW IVP 6 mg DAILY STEFFEN Administration Diltiazem HCl 240 mg 04/28/20 09:00 04/28/20 08:51 Diltiazem Hcl Cd 240 Mg Capsule PO 240 mg DAILY STEFFEN Administration Dronedarone 400 mg 04/27/20 17:00 04/28/20 08:52 Dronedarone Hcl 400 Mg Tab PO 400 mg BID-WM STEFFEN Administration Enoxaparin Sodium 40 mg 04/28/20 09:00 04/28/20 08:51 Enoxaparin Sodium 40 Mg/0.4 Ml Syringe SC 40 mg 09 STEFFEN Administration Fluticasone Propionate 0 gm 04/28/20 09:00 04/28/20 08:54 Fluticasone Propionate Nasal [place] 16 Gm Bottle NASAL 2 spr DAILY STEFFEN Administration Gabapentin 100 mg 04/27/20 21:00 04/28/20 08:52 Gabapentin 100 Mg Cap PO 100 mg BID STEFFEN Administration Hydroxychloroquine Sulfate 200 mg 04/28/20 09:00 04/28/20 08:52 Hydroxychloroquine Sulfate 200 Mg Tab PO 200 mg DAILY STEFFEN Administration Loratadine 10 mg 04/28/20 09:00 04/28/20 08:52 Loratadine 10 Mg Tab PO 10 mg DAILY STEFFEN Administration Melatonin 3 mg 04/27/20 21:00 04/27/20 21:17 Melatonin 3 Mg Tab PO 3 mg HS STEFFEN Administration Pantoprazole Sodium 40 mg 04/28/20 09:00 04/28/20 08:52 Pantoprazole 40 Mg Tab PO 40 mg DAILY STEFFEN Administration Risperidone 1 mg 04/27/20 21:00 04/27/20 21:18 Risperidone 1 Mg Tab PO 1 mg HS STEFFEN Administration Tramadol HCl 50 mg 04/27/20 11:34 04/28/20 08:53 Tramadol Hcl 50 Mg Tab PO 50 mg Q4H PRN Administration Moderate Pain (4-6) - Exam General Appearance: awake alert Eye: PERRL, anicteric sclera ENT: no oropharyngeal lesions, moist mucosa Neck: supple, no JVD Heart: RRR, no murmur Respiratory: no wheezes, no rales Gastrointestinal: soft, non-tender, non-distended Extremities: no cyanosis, no edema Neurological: cranial nerve grossly intact, no focal deficits Psychiatric: normal affect, A&O x 3 Hosp A/P (1) Acute respiratory failure Code(s): J96.00 - ACUTE RESPIRATORY FAILURE, UNSP W HYPOXIA OR HYPERCAPNIA Status: Acute Qualifiers: Respiratory failure complication: hypoxia Qualified Code(s): J96.01 - Acute respiratory failure with hypoxia (2) COVID-19 Code(s): U07.1 - COVID-19 Status: Acute (3) Afib Code(s): I48.91 - UNSPECIFIED ATRIAL FIBRILLATION Status: Chronic Qualifiers: Atrial fibrillation type: paroxysmal Qualified Code(s): I48.0 - Paroxysmal atrial fibrillation (4) Anxiety Code(s): F41.9 - ANXIETY DISORDER, UNSPECIFIED Status: Chronic (5) HTN (hypertension) Code(s): I10 - ESSENTIAL (PRIMARY) HYPERTENSION Status: Chronic Qualifiers: Hypertension type: essential hypertension Qualified Code(s): I10 - E ssential (primary) hypertension (6) Tremor Code(s): R25.1 - TREMOR, UNSPECIFIED Status: Chronic - Plan is on nasal canula 1 liter, may dc if spo2 is >90% dexamethasone, asp, cardizem cd, multaq, plaquenil for RA, risperdal and gabapentin d/w son Brian Wylie over phone dc plan on to her asst living facility in [place] (they will take her after 10 days of covid infection) no remdesivir due to duration of illness and mild symptoms PT to mobilize as tolerated
[2020-04-28] MEDS: Mometasone 200 MCG/Formoterol 5 MCG 120 PUFF INHALER INH SCH (20:00)
[2020-04-28] MEDS: risperiDONE 1 MG TAB PO SCH (20:07)
[2020-04-28] MEDS: Melatonin 3 MG TAB PO SCH (20:07)
[2020-04-29] MEDS: Mometasone 200 MCG/Formoterol 5 MCG 120 PUFF INHALER INH SCH ×2 (06:40→17:30)
[2020-04-29] MEDS: Gabapentin 100 MG CAP PO SCH ×2 (09:26→20:48)
[2020-04-29] MEDS: Aspirin Chewable 81 MG TAB PO SCH (09:26)
[2020-04-29] MEDS: Cholecalciferol 1,000 UNITS (25 MCG) TAB PO SCH (09:26)
[2020-04-29] MEDS: Dronedarone HCl 400 MG TAB PO SCH ×2 (09:26→16:58)
[2020-04-29] MEDS: Enoxaparin Sodium 40 MG/0.4 ML SYRINGE SC SCH (09:26)
[2020-04-29] MEDS: Loratadine 10 MG TAB PO SCH (09:26)
[2020-04-29] MEDS: Dexamethasone 4 mg/ml Vial SLOW IVP SCH (09:27)
[2020-04-29] MEDS: Hydroxychloroquine Sulfate 200 MG TAB PO SCH (09:30)
[2020-04-29] MEDS: Fluticasone Propionate Nasal Spray 16 gm Bottle NASAL SCH (09:35)
--- NOTE | 2020-04-29 10:50 | PRG ---
DATE OF SERVICE: 04/29/2020 OBJECTIVE: VITAL SIGNS: This morning, temperature 98, pulse respiratory rate 16, sats 95% . GENERAL: She is doing well. LUNGS: No wheezing. No crackles. CARDIAC: Normal S1, S2. No gallops. ABDOMEN: Soft. ASSESSMENT AND PLAN: Brewster positive pneumonia, relatively stable. She is on dexamethasone, which I would continue, inhaled steroids, supportive care. It looks like she may be stable enough to be discharged home soon. Chest. Job ID: [id number]
--- NOTE | 2020-04-29 11:31 | CON ---
DATE OF CONSULTATION: HISTORY OF PRESENT ILLNESS: An 87-year-old patient from the custodial brought to the hospital with mild respiratory distress. Apparently, her saturations were low. She has been here a week ago, where she was found to have coronavirus positive pneumonia symptoms, cough. Sats on 2 L of 88%. This morning, she is doing better. She is saturating in the 90s. Cough is better. She is less short of breath. PAST MEDICAL HISTORY: 1. Hyperlipidemia. 2. Hypertension. 3. Osteoporosis. 4. Arthritis. 5. Chronic atrial fibrillation. PAST SURGICAL HISTORY: 1. Cholecystectomy. 2. Hernia repair. SOCIAL HISTORY: Alcohol, none. Tobacco, none. MEDICINE: Includes from custodial; 1. Lasix 20. 2. Melatonin 3. 3. Meclizine 25. 4. Claritin. 5. Plaquenil. 6. Flonase nasal spray. 7. Cardizem 240. 8. Tylenol. 9. Risperidone 1 mg. 10. Gabapentin . 11. Multaq . ALLERGIES: MULTIPLE INCLUDING METOPROLOL, PENICILLIN, PRAVASTATIN. PHYSICAL EXAMINATION: VITAL SIGNS: Temperature 98, pulse sats 98% on 1 L, blood pressure GENERAL: She is in no distress. CHEST: No wheezing. No crackles. CARDIAC: Normal S1, S2. No gallops. ABDOMEN: No masses. LABORATORY DATA: White count 4000. Lytes are normal. C-reactive protein 3.5. Chest x-ray did not show any significant infiltrates, but CT scan did show mild ground-glass opacity, right greater than left with a small left pleural effusion, elevated diaphragm on the right side. ASSESSMENT: Brewster positive pneumonia, tracheobronchitis, early pneumonia. PLAN: I agree with steroids. I have added some inhaled steroids to present regime. If remains stable 24 hours, she can be discharged back to the custodial. Incidentally, she is a DNR. Consultation note, 70 minutes, 50% direct patient care. Job ID: [id number]
[2020-04-29] MEDS: Albuterol 200 PUFF (6.7GM INHALER) INH PRN ×2 (12:38→17:10)
[2020-04-29] MEDS: HYDROcodone/Acetaminophen 5/325 mg Tablet PO PRN ×2 (12:39→20:51)
--- NOTE | 2020-04-29 13:36 | PDOC.HOSPP ---
- Subjective Encounter Date: 04/29/20 Encounter Time: 10:00 Subjective: no sob, feels better is eating better but still less - Objective Vital Signs & Weight: Vital Signs (12 hours) Pulse Resp Pulse Ox 04/29/20 09:27 64 04/29/20 06:40 64 16 95 Weight Weight 134 lb I&O: 04/28/20 04/29/20 04/30/20 06:59 06:59 06:59 Intake Total 490 Output Total 150 Balance 490 -150 Result Diagrams: 04/28/20 05:30 04/28/20 05:30 Hospitalist ROS - Medication Medications: Active Medications Generic Name Dose Route Start Last Admin Trade Name Freq PRN Reason Stop Dose Admin Hydrocodone Bitart/Acetaminophen 1 tab 04/26/20 20:28 04/29/20 12:39 Hydrocodone/Acetaminophen 5/325 Mg Tablet PO 1 tab Q4H PRN Administration Moderate Pain (4-6) Albuterol Sulfate 2 puff 04/27/20 11:59 04/29/20 12:38 Albuterol 200 Puff (6.7gm Inhaler) INH 2 inh [id number] PRN Administration SOB &/or Wheezing Aspirin 81 mg 04/28/20 09:00 04/29/20 09:26 Aspirin Chewable 81 Mg Tab PO 81 mg DAILY STEFFEN Administration Cholecalciferol 1,000 units 04/28/20 09:00 04/29/20 09:26 Cholecalciferol 1,000 Units (25 Mcg) Tab PO 1,000 units DAILY STEFFEN Administration Dexamethasone 6 mg 04/27/20 09:00 04/29/20 09:27 Dexamethasone 4 Mg/Ml Vial SLOW IVP 6 mg DAILY STEFFEN Administration Diltiazem HCl 240 mg 04/28/20 09:00 04/29/20 09:27 Diltiazem Hcl Cd 240 Mg Capsule PO 240 mg DAILY STEFFEN Administration Dronedarone 400 mg 04/27/20 17:00 04/29/20 09:26 Dronedarone Hcl 400 Mg Tab PO 400 mg BID-WM STEFFEN Administration Enoxaparin Sodium 40 mg 04/28/20 09:00 04/29/20 09:26 Enoxaparin Sodium 40 Mg/0.4 Ml Syringe SC 40 mg 09 STEFFEN Administration Fluticasone Propionate 0 gm 04/28/20 09:00 11/04/20 09:35 Fluticasone Propionate Nasal [place] 16 Gm Bottle NASAL 2 spr DAILY STEFFEN Administration Gabapentin 100 mg 04/27/20 21:00 04/29/20 09:26 Gabapentin 100 Mg Cap PO 100 mg BID STEFFEN Administration Hydroxychloroquine Sulfate 200 mg 04/28/20 09:00 04/29/20 09:30 Hydroxychloroquine Sulfate 200 Mg Tab PO 200 mg DAILY STEFFEN Administration Loratadine 10 mg 04/28/20 09:00 04/29/20 09:26 Loratadine 10 Mg Tab PO 10 mg DAILY STEFFEN Administration Melatonin 3 mg 04/27/20 21:00 04/28/20 20:07 Melatonin 3 Mg Tab PO 3 mg HS STEFFEN Administration Mometasone Furoate/Formoterol Fumar 2 puff 04/28/20 18:30 04/29/20 06:40 Mometasone 200 Mcg/Formoterol 5 Mcg 120 Puff Inhaler INH 2 puff BID-RT STEFFEN Administration Pantoprazole Sodium 40 mg 04/28/20 09:00 04/29/20 09:26 Pantoprazole 40 Mg Tab PO 40 mg DAILY STEFFEN Administration Risperidone 1 mg 04/27/20 21:00 04/28/20 20:07 Risperidone 1 Mg Tab PO 1 mg HS STEFFEN Administration Tramadol HCl 50 mg 04/27/20 11:34 04/28/20 17:41 Tramadol Hcl 50 Mg Tab PO 50 mg Q4H PRN Administration Moderate Pain (4-6) - Exam General Appearance: awake alert Eye: PERRL, anicteric sclera ENT: no oropharyngeal lesions, moist mucosa Neck: supple, no JVD Heart: RRR, no murmur Respiratory: no wheezes, no rales Gastrointestinal: soft, non-tender, non-distended, normal bowel sounds Extremities: no cyanosis, no edema Neurological: cranial nerve grossly intact, no focal deficits Hosp A/P (1) Acute respiratory failure Code(s): J96.00 - ACUTE RESPIRATORY FAILURE, UNSP W HYPOXIA OR HYPERCAPNIA Status: Acute Qualifiers: Respiratory failure complication: hypoxia Qualified Code(s): J96.01 - Acute respiratory failure with hypoxia (2) COVID-19 Code(s): U07.1 - COVID-19 Status: Acute (3) Afib Code(s): I48.91 - UNSPECIFIED ATRIAL FIBRILLATION Status: Chronic Qualifiers: Atrial fibrillation type: paroxysmal Qualified Code(s): I48.0 - Paroxysmal atrial fibrillation (4) Anxiety Code(s): F41.9 - ANXIETY DISORDER, UNSPECIFIED Status: Chronic (5) HTN (hypertension) Code(s): I10 - ESSENTIAL (PRIMARY) HYPERTENSION Status: Chronic Qualifiers: Hypertension type: essential hypertension Qualified Code(s): I10 - Essential (primary) hypertension (6) Tremor Code(s): R25.1 - TREMOR, UNSPECIFIED Status: Chronic - Plan is on nasal canula 1 liter, may dc if spo2 is >90% dexamethasone, asp, cardizem cd, multaq, plaquenil for RA, risperdal and gabapentin d/w son Brian Wylie over phone (04/28) dc plan to swing bed in [place], october dc if placement is ready. no remdesivir due to duration of illness and mild symptoms PT to mobilize as tolerated
[2020-04-29] MEDS: traMADol HCl 50 MG TAB PO PRN (17:09)
[2020-04-29] MEDS: risperiDONE 1 MG TAB PO SCH (20:49)
[2020-04-29] MEDS: Melatonin 3 MG TAB PO SCH (20:49)
[2020-04-30] MEDS: Albuterol 200 PUFF (6.7GM INHALER) INH PRN ×2 (04:56→08:20)
[2020-04-30] MEDS: Mometasone 200 MCG/Formoterol 5 MCG 120 PUFF INHALER INH SCH (04:57)
[2020-04-30] MEDS ORDERED: Metoprolol Tartrate 5 MG/5 ML VIAL IVP SCH (06:15)
[2020-04-30] MEDS ORDERED: hydrALAZINE 20 MG/ML VIAL SLOW IVP SCH (06:15)
[2020-04-30] MEDS: Aspirin Chewable 81 MG TAB PO SCH (08:17)
[2020-04-30] MEDS: Dronedarone HCl 400 MG TAB PO SCH ×2 (08:17→17:01)
[2020-04-30] MEDS: Enoxaparin Sodium 40 MG/0.4 ML SYRINGE SC SCH (08:17)
[2020-04-30] MEDS: HYDROcodone/Acetaminophen 5/325 mg Tablet PO PRN (08:18)
[2020-04-30] MEDS: Furosemide 20 MG TAB PO SCH (08:19)
[2020-04-30] MEDS: Loratadine 10 MG TAB PO SCH (08:19)
[2020-04-30] MEDS: Dexamethasone 4 mg/ml Vial SLOW IVP SCH (08:19)
[2020-04-30] MEDS: Gabapentin 100 MG CAP PO SCH ×2 (08:19→20:19)
[2020-04-30] MEDS: Hydroxychloroquine Sulfate 200 MG TAB PO SCH (08:19)
[2020-04-30] MEDS: Cholecalciferol 1,000 UNITS (25 MCG) TAB PO SCH (08:21)
[2020-04-30] MEDS: Fluticasone Propionate Nasal Spray 16 gm Bottle NASAL SCH (08:21)
--- NOTE | 2020-04-30 11:19 | RAD ---
EXAM: XR Chest 1 View Portable PROVIDED CLINICAL HISTORY: Pneumonia COMPARISON: 04/26/2020 FINDINGS: Mild increase in conspicuity of bilateral perihilar airspace opacities. Elevation of the right hemidi aphragm persists. Cardiac and mediastinal silhouette is unchanged in appearance. No pleural fluid or pneumothorax apparent. IMPRESSION: Mild interval increase in conspicuity of bilateral perihilar airspace opacities.
--- NOTE | 2020-04-30 11:22 | PRG ---
DATE OF SERVICE: 04/30/2020 SUBJECTIVE: Jaleesa Villasenor is an 89-year-old female who is a DNR. OBJECTIVE: VITAL SIGNS: Temperature 97, pulse 70, respiratory rate 18, saturations 98% on a liter, blood pressure 160/75. CHEST: No wheezing. No crackles. CARDIAC: Normal S1 and S2. No gallops. ABDOMEN: Soft. ASSESSMENT: Respiratory failure, acosta positive pneumonia. PLAN: We are going to continue Decadron, neb treatments, inhaled steroids, supportive care. We will follow. Job ID: [id number]
[2020-04-30] MEDS: traMADol HCl 50 MG TAB PO PRN (12:10)
--- NOTE | 2020-04-30 13:39 | PDOC.HOSPP ---
- Subjective Encounter Date: 04/30/20 Encounter Time: 10:00 Subjective: feels better no new complaints is eating better per patient - Objective Vital Signs & Weight: Vital Signs (12 hours) Temp Pulse Resp BP BP Pulse Ox 04/30/20 12:00 97.8 F 77 18 127/63 94 L 04/30/20 08:00 97.7 F 78 18 168/75 H 95 04/30/20 06:32 86 194/110 H 04/30/20 06:30 86 194/110 H 04/30/20 05:35 97.8 F 86 18 194/110 H 99 04/30/20 04:57 72 18 96 Weight Weight 134 lb I&O: 04/29/20 04/30/20 05/01/20 06:59 06:59 06:59 Intake Total 720 480 Output Total 150 Balance -150 720 480 Result Diagrams: 04/28/20 05:30 04/28/20 05:30 Hospitalist ROS - Medication Medications: Active Medications Generic Name Dose Route Start Last Admin Trade Name Freq PRN Reason Stop Dose Admin Hydrocodone Bitart/Acetaminophen 1 tab 04/26/20 20:28 04/30/20 08:18 Hydrocodone/Acetaminophen 5/325 Mg Tablet PO 1 tab Q4H PRN Administration Moderate Pain (4-6) Albuterol Sulfate 2 puff 04/27/20 11:59 04/30/20 08:20 Albuterol 200 Puff (6.7gm Inhaler) INH 2 inh [id number] PRN Administration SOB &/or Wheezing Aspirin 81 mg 04/28/20 09:00 04/30/20 08:17 Aspirin Chewable 81 Mg Tab PO 81 mg DAILY STEFFEN Administration Cholecalciferol 1,000 units 04/28/20 09:00 04/30/20 08:21 Cholecalciferol 1,000 Units (25 Mcg) Tab PO 1,000 units DAILY STEFFEN Administration Dexamethasone 6 mg 04/27/20 09:00 04/30/20 08:19 Dexamethasone 4 Mg/Ml Vial SLOW IVP 6 mg DAILY STEFFEN Administration Diltiazem HCl 240 mg 04/28/20 09:00 04/30/20 06:32 Diltiazem Hcl Cd 240 Mg Capsule PO 240 mg DAILY STEFFEN Administration Dronedarone 400 mg 04/27/20 17:00 04/30/20 08:17 Dronedarone Hcl 400 Mg Tab PO 400 mg BID-WM STEFFEN Administration Enoxaparin Sodium 40 mg 04/28/20 09:00 04/30/20 08:17 Enoxaparin Sodium 40 Mg/0.4 Ml Syringe SC 40 mg 0900 STEFFEN Administration Fluticasone Propionate 0 gm 04/28/20 09:00 04/30/20 08:21 Fluticasone Propionate Nasal Hoffman 16 Gm Bottle NASAL 2 spr DAILY STEFFEN Administration Furosemide 20 mg 04/30/20 09:00 04/30/20 08:19 Furosemide 20 Mg Tab PO 20 mg DAILY STEFFEN Administration Gabapentin 100 mg 04/27/20 21:00 04/30/20 08:19 Gabapentin 100 Mg Cap PO 100 mg BID STEFFEN Administration Hydroxychloroquine Sulfate 200 mg 04/28/20 09:00 04/30/20 08:19 Hydroxychloroquine Sulfate 200 Mg Tab PO 200 mg DAILY STEFFEN Administration Loratadine 10 mg 04/28/20 09:00 04/30/20 08:19 Loratadine 10 Mg Tab PO 10 mg DAILY STEFFEN Administration Melatonin 3 mg 04/27/20 21:00 04/29/20 20:49 Melatonin 3 Mg Tab PO 3 mg HS STEFFEN Administration Mometasone Furoate/Formoterol Fumar 2 puff 04/28/20 18:30 04/30/20 04:57 Mometasone 200 Mcg/Formoterol 5 Mcg 120 Puff Inhaler INH 2 puff BID-RT STEFFEN Administration Pantoprazole Sodium 40 mg 04/28/20 09:00 04/30/20 08:19 Pantoprazole 40 Mg Tab PO 40 mg DAILY STEFFEN Administration Risperidone 1 mg 04/27/20 21:00 04/29/20 20:49 Risperidone 1 Mg Tab PO 1 mg HS STEFFEN Administration Sodium Chloride 10 ml 04/30/20 09:00 04/30/20 08:20 Flush - Normal Saline 10 Ml Syringe IVF 10 ml Q12HR STEFFEN Administration Tramadol HCl 50 mg 04/27/20 11:34 04/30/20 12:10 Tramadol Hcl 50 Mg Tab PO 50 mg Q4H PRN Administration Moderate Pain (4-6) - Exam General Appearance: awake alert Eye: PERRL, anicteric sclera ENT: no oropharyngeal lesions, moist mucosa Neck: supple, no JVD Heart: RRR, no murmur Respiratory: no wheezes, no rales, rhonchi Gastrointestinal: soft, non-tender, non-distended, normal bowel sounds Extremities: no cyanosis, no edema Neurological: cranial nerve grossly intact, no focal deficits Hosp A/P (1) Acute respiratory failure Code(s): J96.00 - ACUTE RESPIRATORY FAILURE, UNSP W HYPOXIA OR HYPERCAPNIA Status: Acute Qualifiers: Respiratory failure complication: hypoxia Qualified Code(s): J96.01 - Acute respiratory failure with hypoxia (2) COVID-19 Code(s): U07.1 - COVID-19 Status: Acute (3) Afib Code(s): I48.91 - UNSPECIFIED ATRIAL FIBRILLATION Status: Chronic Qualifiers: Atrial fibrillation type: paroxysmal Qualified Code(s): I48.0 - Paroxysmal atrial fibrillation (4) Anxiety Code(s): F41.9 - ANXIETY DISORDER, UNSPECIFIED Status: Chronic (5) HTN (hypertension) Code(s): I10 - ESSENTIAL (PRIMARY) HYPERTENSION Status: Chronic Qualifiers: Hypertension type: essential hypertension Qualified Code(s): I10 - Essential (primary) hypertension (6) Tremor Code(s): R25.1 - TREMOR, UNSPECIFIED Status: Chronic - Plan is on nasal canula 1 liter, may dc if spo2 is >90% dexamethasone, asp, cardizem cd, multaq, plaquenil for RA, risperdal and g abapentin d/w son Brian Wylie over phone (04/28, 04/30) dc plan to swing bed/[facility]. no remdesivir due to duration of illness and mild symptoms PT to mobilize as tolerated is ready for dc
[2020-04-30] MEDS: risperiDONE 1 MG TAB PO SCH (20:20)
[2020-04-30] MEDS: Melatonin 3 MG TAB PO SCH (20:20)
[2020-05-01] MEDS: HYDROcodone/Acetaminophen 5/325 mg Tablet PO PRN (06:27)
[2020-05-01] MEDS: Mometasone 200 MCG/Formoterol 5 MCG 120 PUFF INHALER INH SCH ×2 (06:36→07:42)
[2020-05-01] MEDS: Enoxaparin Sodium 40 MG/0.4 ML SYRINGE SC SCH (07:39)
[2020-05-01] MEDS: Hydroxychloroquine Sulfate 200 MG TAB PO SCH (07:40)
[2020-05-01] MEDS: Loratadine 10 MG TAB PO SCH (07:40)
[2020-05-01] MEDS: Gabapentin 100 MG CAP PO SCH (07:40)
[2020-05-01] MEDS: Furosemide 20 MG TAB PO SCH (07:40)
[2020-05-01] MEDS: Aspirin Chewable 81 MG TAB PO SCH (07:40)
[2020-05-01] MEDS: Dronedarone HCl 400 MG TAB PO SCH (07:40)
[2020-05-01] MEDS: Dexamethasone 4 mg/ml Vial SLOW IVP SCH (07:41)
[2020-05-01] MEDS: Fluticasone Propionate Nasal Spray 16 gm Bottle NASAL SCH (07:42)
[2020-05-01] MEDS: Cholecalciferol 1,000 UNITS (25 MCG) TAB PO SCH (07:42)
--- NOTE | 2020-05-01 10:05 | PRG ---
DATE OF SERVICE: 05/01/2020 SUBJECTIVE: She may be able to get transfer to a tertiary care place. OBJECTIVE: VITAL SIGNS: Temperature 98, pulse 96, respirations 18, saturations 96% on 4 L, blood pressure . CHEST: Decreased breath sounds. No wheezing. CARDIAC: Normal S1 and S2. No gallops. ABDOMEN: No masses. IMPRESSION: Respiratory failure, acosta positive pneumonia. PLAN: She is on doxycycline, dexamethasone, and inhaled steroids. Switch over to oral prednisone. Job ID: [id number]
[2020-05-01 14:22] VITALS: BP 178/88; TEMP 97.9
--- NOTE | 2020-05-01 14:38 | PDOC.HOSPP ---
- Subjective Encounter Date: 05/01/20 Encounter Time: 10:00 Subjective: not in distress no new complaints - Objective Vital Signs & Weight: Vital Signs (12 hours) Temp Pulse Resp BP Pulse Ox 05/01/20 12:00 97.9 F 94 18 178/88 H 97 05/01/20 08:23 96 05/01/20 08:17 85 L 05/01/20 08:00 98.2 F 96 18 182/94 H 95 05/01/20 07:39 82 05/01/20 04:00 98.8 F 82 18 170/72 H 95 Weight Weight 134 lb I&O: 04/30/20 05/01/20 05/02/20 06:59 06:59 06:59 Intake Total 720 720 480 Balance 720 720 480 Result Diagrams: 04/28/20 05:30 04/28/20 05:30 Hospitalist ROS - Medication Medications: Active Medications Generic Name Dose Route Start Last Admin Trade Name Freq PRN Reason Stop Dose Admin Hydrocodone Bitart/Acetaminophen 1 tab 04/26/20 20:28 05/01/20 06:27 Hydrocodone/Acetaminophen 5/325 Mg Tablet PO 1 tab Q4H PRN Administration Moderate Pain (4-6) Albuterol Sulfate 2 puff 04/27/20 11:59 04/30/20 08:20 Albuterol 200 Puff (6.7gm Inhaler) INH 2 inh [id number] PRN Administration SOB &/or Wheezing Aspirin 81 mg 04/28/20 09:00 05/01/20 07:40 Aspirin Chewable 81 Mg Tab PO 81 mg DAILY STEFFEN Administration Cholecalciferol 1,000 units 04/28/20 09:00 05/01/20 07:42 Cholecalciferol 1,000 Units (25 Mcg) Tab PO 1,000 units DAILY STEFFEN Administration Dexamethasone 6 mg 04/27/20 09:00 05/01/20 07:41 Dexamethasone 4 Mg/Ml Vial SLOW IVP 6 mg DAILY STEFFEN Administration Diltiazem HCl 240 mg 04/28/20 09:00 05/01/20 07:39 Diltiazem Hcl Cd 240 Mg Capsule PO 240 mg DAILY STEFFEN Administration Dronedarone 400 mg 04/27/20 17:00 05/01/20 07:40 Dronedarone Hcl 400 Mg Tab PO 400 mg BID-WM STEFFEN Administration Enoxaparin Sodium 40 mg 04/28/20 09:00 05/01/20 07:39 Enoxaparin Sodium 40 Mg/0.4 Ml Syringe SC 40 mg 0900 STEFFEN Administration Fluticasone Propionate 0 gm 04/28/20 09:00 05/01/20 07:42 Fluticasone Propionate Nasal [place] 16 Gm Bottle NASAL 2 spr DAILY STEFFEN Administration Furosemide 20 mg 04/30/20 09:00 05/01/20 07:40 Furosemide 20 Mg Tab PO 20 mg DAILY STEFFEN Administration Gabapentin 100 mg 04/27/20 21:00 05/01/20 07:40 Gabapentin 100 Mg Cap PO 100 mg BID STEFFEN Administration Hydroxychloroquine Sulfate 200 mg 04/28/20 09:00 05/01/20 07:40 Hydroxychloroquine Sulfate 200 Mg Tab PO 200 mg DAILY STEFFEN Administration Doxycycline Hyclate 100 mg/ 100 mls @ 100 mls/hr 04/30/20 21:00 05/01/20 09:47 Sodium Chloride IVPB 05/07/20 21:01 100 mls Q12HR STEFFEN Administration Loratadine 10 mg 04/28/20 09:00 05/01/20 07:40 Loratadine 10 Mg Tab PO 10 mg DAILY STEFFEN Administration Melatonin 3 mg 04/27/20 21:00 04/30/20 20:20 Melatonin 3 Mg Tab PO 3 mg HS STEFFEN Administration Mometasone Furoate/Formoterol Fumar 2 puff 04/28/20 18:30 05/01/20 07:42 Mometasone 200 Mcg/Formoterol 5 Mcg 120 Puff Inhaler INH 2 puff BID-RT STEFFEN Administration Pantoprazole Sodium 40 mg 04/28/20 09:00 05/01/20 07:40 Pantoprazole 40 Mg Tab PO 40 mg DAILY STEFFEN Administration Risperidone 1 mg 04/27/20 21:00 04/30/20 20:20 Risperidone 1 Mg Tab PO 1 mg HS STEFFEN Administration Sodium Chloride 10 ml 04/30/20 09:00 05/01/20 07:41 Flush - Normal Saline 10 Ml Syringe IVF 10 ml Q12HR STEFFEN Administration Tramadol HCl 50 mg 04/27/20 11:34 04/30/20 12:10 Tramadol Hcl 50 Mg Tab PO 50 mg Q4H PRN Administration Moderate Pain (4-6) - Exam General Appearance: awake alert Eye: PERRL, anicteric sclera ENT: no oropharyngeal lesions, moist mucosa Neck: supple, no JVD Heart: RRR, no murmur Respiratory: no wheezes, no rales, rhonchi Gastrointestinal: soft, non-tender, non-distended, normal bowel sounds Extremities: no cyanosis, no edema Neurological: cranial nerve grossly intact, no focal deficits Hosp A/P (1) Acute respiratory failure Code(s): J96.00 - ACUTE RESPIRATORY FAILURE, UNSP W HYPOXIA OR HYPERCAPNIA Status: Acute Qualifiers: Respiratory failure complication: hypoxia Qualified Code(s): J96.01 - Acute respiratory failure with hypoxia (2) COVID-19 Code(s): U07.1 - COVID-19 Status: Acute (3) Afib Code(s): I48.91 - UNSPECIFIED ATRIAL FIBRILLATION Status: Chronic Qualifiers: Atrial fibrillation type: paroxysmal Qualified Code(s): I48.0 - Paroxysmal atrial fibrillation (4) Anxiety Code(s): F41.9 - ANXIETY DISORDER, UNSPECIFIED Status: Chronic (5) HTN (hypertension) Code(s): I10 - ESSENTIAL (PRIMARY) HYPERTENSION Status: Chronic Qualifiers: Hypertension type: essential hypertension Qualified Code(s): I10 - Essential (primary) hypertension (6) Tremor Code(s): R25.1 - TREMOR, UNSPECIFIED Status: Chronic - Plan is on nasal canula 1 liter prednisone, asp, cardizem cd, multaq, plaquenil for RA, risperdal and gabapentin d/w son Brian Wylie over phone (04/28, 04/30) dc plan to [facility]. no remdesivir due to duration of illness and mild symptoms PT to mobilize as tolerated is ready for dc
--- NOTE | 2020-05-01 15:55 | DIS ---
DATE OF ADMISSION: 04/27/2020 DATE OF DISCHARGE: 05/01/2020 DISCHARGE DISPOSITION: [facility]. PRIMARY DISCHARGE DIAGNOSES: Acute respiratory failure with hypoxia and COVID pneumonia, history of chronic atrial fibrillation which is paroxysmal, anxiety disorder, hypertension, chronic tremor. PROCEDURES DONE DURING HOSPITALIZATION: Chest x-ray done on admission showed findings of elevated right hemidiaphragm, which appears to be chronic. Repeat chest x-ray done on 04/30/2020, showed bilateral perihilar airspace opacities. Blood cultures x2, no growth. H and H 10 and 33, platelet count 154, MCV 82, white count of 10. D-dimer was 0.7. CRP 8.67 on admission, discharge numbers of 3.59. Ferritin 88.73. BUN 30, creatinine 0.7. Procalcitonin 0.09. Albumin 3.5. COVID-19 PCR was positive on 04/20/2020. DISCHARGE MEDICATIONS: 1. Aspirin 81 mg p.o. daily. 2. Loratadine 10 mg p.o. daily. 3. Flonase nasal spray. 4. Gabapentin 100 mg twice daily. 5. Lasix 20 mg daily. 6. Melatonin 3 mg p.o. at bedtime. 7. Plaquenil 200 mg daily. 8. Prilosec 20 mg daily. 9. Risperdal 1 mg p.o. at bedtime. 10. Ultram p.r.n. for pain. 11. Vitamin D3 of 1000 units p.o. daily. 12. Meclizine 25 mg three times daily p.r.n. 13. Cardizem CD 240 mg p.o. daily. 14. Multaq 400 mg p.o. twice daily. 15. Prednisone 10 mg twice daily for 3 days, then daily for 3 days, and to discontinue. ALLERGIES: TO ALENDRONATE, IBANDRONATE, RISEDRONATE, PRAVASTATIN, PHENOBARBITAL, PENICILLIN, METOPROLOL, CODEINE, ORANGE JUICE. DISCHARGE PLAN: The patient to follow up with her primary care physician, Dr. Valles in 1 week. BRIEF COURSE DURING HOSPITALIZATION: The patient initially was brought to emergency room on the 26 of April with complaints of shortness of breath. She had known history of COVID diagnosed on . She has had progressive shortness of breath with decreasing saturations at home. Ms. Jacklyn was placed on 2 L nasal cannula and the saturations promptly has come up to more than 95%. The patient was not a candidate for remdesivir due to duration of illness. She was placed on steroids and she has responded well. In view of deconditioning, the patient is being discharged to [facility] prior to going home. A total of 35 minutes was spent on discharge plan. She needs to participate with physical therapy prior to going home. A total of 35 minute was spent on discharge plan. Please see a [id number] documentation for the day of discharge on [employer]. Job ID: [id number]
--- NOTE | 2020-05-02 16:41 | EKG ---
Test Reason : Blood Pressure : / mmHG Vent. Rate : 066 BPM Atrial Rate : 066 BPM P-R Int : 132 ms QRS Dur : 074 ms QT Int : 466 ms P-R-T Axes : 052 061 071 degrees QTc Int : 488 ms Normal sinus rhythm Prolonged QT Abnormal ECG Confirmed by PENG GLEZ, ESVIN ([id number]), editor sound ROXANNE MESA ([id number]) on 05/02/2020 4:41:19 PM Referred By: Confirmed By:ESVIN KHOURY MD
== END 2020-05-01 15:58 | DRG 177 ==
LOC: ERS 16:19 → INTOOBSV 19:50 → T4-B 19:50 → OBSVTOIN 04-27 09:14
PROVIDERS: ADMIT Internal Medicine; ATTEND Internal Medicine
PROC: 8E0ZXY6 Isolation (ICD-10-PCS; principal; 2020-04-27)
DX: U07.1 COVID-19 (principal); J12.89 Other viral pneumonia; J96.01 Acute respiratory failure with hypoxia; I50.32 Chronic diastolic (congestive) heart failure; I13.0 Hypertensive heart and chronic kidney disease with heart failure and stage 1 through stage 4 chronic kidney disease, or unspecified chronic kidney disease; Z66 Do not resuscitate; E05.90 Thyrotoxicosis, unspecified without thyrotoxic crisis or storm; E78.5 Hyperlipidemia, unspecified; M81.0 Age-related osteoporosis without current pathological fracture; N18.2 Chronic kidney disease, stage 2 (mild); D50.9 Iron deficiency anemia, unspecified; I48.0 Paroxysmal atrial fibrillation; F41.9 Anxiety disorder, unspecified; R25.1 Tremor, unspecified; E87.5 Hyperkalemia; Z90.49 Acquired absence of other specified parts of digestive tract; Z90.710 Acquired absence of both cervix and uterus; Z88.0 Allergy status to penicillin; Z88.8 Allergy status to other drugs, medicaments and biological substances; Z79.899 Other long term (current) drug therapy
CPT/HCPCS: 36415; 71045; 80053; 82553; 82728; 83605; 83735; 84145; 84484; 85007; 85025; 85027; 85379; 86140; 87040; 93005; 94664; 96374; J0360; J1100; J1650; J3490

== ENCOUNTER 2020-06-11 21:00 | Inpatient (IN) | payer MEDICARE, MEDICAID ==
[2020-06-11 21:40] LABS: #Lymphocytes 0.7 thou/uL (1.20-3.40); #Monocytes 0.6 thou/uL (0.11-0.59); #Neutrophils 6.7 thou/uL (1.40-6.50); %Basophils 0.3 % (0.0-1.0); %Eosinophils 0.5 % (0.0-10.0); %Lymphocytes 8.6 % (21.0-51.0); %Monocytes 6.9 % (0.0-10.0); %Neutrophils 83.7 % (42.0-75.0); Mean Corpuscular HGB CONC 31.3 g/dL (32.0-36.0); Mean Corpuscular Hemoglobin 26.6 pg (27.0-31.0); Platelet Count 202 thou/uL (130-400); RBC Distribution Width 17.2 % (11.5-14.5); Red Blood Cell (RBC) Count 3.77 mill/uL (4.20-5.40); White Blood Cell (WBC) Count 7.9 thou/uL (4.8-10.8)
--- NOTE | 2020-06-11 21:53 | RAD ---
CHEST ONE VIEW: 06/11/20 INDICATION: History of dyspnea. COMPARISON: Prior exam dated 04/30/20. FINDINGS: There is cardiomegaly with pulmonary vascular congestion. Bilateral perihilar air space opacity suspi cious for edema. There is small bilateral pleural effusions. There is no pneumothorax evident. IMPRESSION: Findings suspicious for mild to moderate CHF. POS: BH
[2020-06-11 22:06] LABS: ALT (SGPT) 30 U/L (8-55); AST (SGOT) 18 U/L (5-34); Albumin 3.4 g/dL (3.4-4.8); Anion Gap 13 mmol/L (10-20); BUN (Urea Nitrogen) 19 mg/dL (9.8-20.1); Bilirubin, Total 0.4 mg/dL (0.2-1.2); Calc. Creatinine Clearance 0 mL/min (70-130); Calcium 9.2 mg/dL (7.8-10.44); Carbon Dioxide 35 mmol/L (23-31); Chloride 92 mmol/L (98-107); Globulin 2.6 g/dL (2.4-3.5); Glucose 106 mg/dL (83-110); Potassium 4.2 mmol/L (3.5-5.1); Sodium 136 mmol/L (136-145)
[2020-06-11 22:16] LABS: Alkaline Phosphatase 94 U/L (40-110)
--- NOTE | 2020-06-12 03:07 | HP ---
REASON FOR ADMISSION: Shortness of breath. HISTORY OF PRESENT ILLNESS: This is an 89-year-old female patient, who was diagnosed with COVID-19 in early April approximately a month and half ago, then she progressed to be short of breath and admitted to our hospital, treated with IV steroids, discharged to [facility] with oxygen. At [facility], she did undergo physical therapy. At some point, she plateaued and was advised to be transferred back to her initial senior care location and the [facility]. Upon her discharge, the son was notified that she did not qualify for oxygen as she was discharged to her initial site couple days ago. I did speak with her son. He told me that he noticed that his mom has been short of breath and wheezing for the past couple of days and tonight, EMS was called. Upon their arrival, the patient's pulse ox was 70%. She was given a dose of Solu-Medrol and MDI puffs. She immediately felt better and improved after she was started on oxygen supplementation in the emergency room. She was very talkative and appears to be comfortable, but still required to be on oxygen. When I went to see her, she was not answering my questions, although previously, she was very animated, but to me, she did not look in distress. PAST MEDICAL HISTORY: 1. Atrial fibrillation, not on anticoagulation. 2. ? COPD. 3. High blood pressure. 4. High cholesterol. 5. Resting tremor. 6. Scoliosis. 7. Status post hernia repair. 8. Status post hysterectomy. 9. Cholecystectomy. ALLERGIES: TO METOPROLOL, PENICILLIN, PRAVASTATIN, ALENDRONATE, CODEINE, AND OTHER MEDICATIONS LISTED. REVIEW OF SYSTEMS: Unable to obtain. Not very cooperative with my physical examination. FAMILY HISTORY: Unable to obtain. PHYSICAL EXAMINATION: GENERAL: She opens her eyes. She follows commands, but is not verbally communicating with me. VITAL SIGNS: Her blood pressure is 159/72, heart rate of 73, temperature is 98.8, and saturating 96% on 3 L nasal cannula. HEENT: Head is nontraumatic and normocephalic. Pupils equally reactive. Extraocular movements are intact. Nonicteric sclerae. Well injected conjunctivae. Oral mucosa normal. Nasal mucosa normal. NECK: Supple. No adenopathy. No murmur. Thyroid is not palpable. Trachea is midline. No supraclavicular adenopathy. No lymphadenopathy. CARDIAC: S1, S2 regular. No murmur. No gallop. No friction rubs. No displacement of PMI. LUNGS: Poor inspiratory effort. No wheezes, rhonchi, or crackles. Bowel sounds are positive. Nontender abdomen. No visceromegaly. EXTREMITIES: No lower extremity edema. No cyanosis. NEUROLOGIC: Unable to fully assess. LABORATORY DATA: Blood work shows WBC 7.9, hemoglobin of 10, platelets of 202, neutrophil count 83.7%. Sodium 136, potassium 4.2, bicarb of 35. BNP 131.7. A chest x-ray shows suspicion for [id number] congestive heart failure. EKG shows normal sinus rhythm, no ST-segment or T-wave changes. ASSESSMENT AND PLAN: This is an 89-year-old female patient, who is presenting with shortness of breath and hypoxia. She was diagnosed with COVID-19 approximately a month ago, required to be hospitalized, then discharged to [facility], where she underwent physical therapy. At some point, she was deemed not needing oxygen, but for the past 2 days, was noted to be wheezing. The underlying cause could be exacerbation of her presumed chronic obstructive pulmonary disease versus congestive heart failure, although an echocardiogram done a year ago did show preserved EF. Cardiac. The patient probably has congestive heart failure. We will change her p.o. Lasix to IV in a.m. We will do an echocardiogram, and we will resume her Multaq and Cardizem and other cardiac medications. Pulmonary. The patient probably has exacerbation of her chronic obstructive pulmonary disease, since she did respond so well to neb treatments and Solu-Medrol. We will continue with neb treatments and since I did not hear much wheezing, I would not maintain her on Solu-Medrol. We will continue supplementing her with oxygen. For deep vein thrombosis prophylaxis, she will be on Lovenox. I did discuss the code status with her son, and she does have an out of the hospital DNR. So, while in the hospital, she will be a DNR. Job ID: [id number]
[2020-06-12] MEDS ORDERED: Albuterol 200 PUFF (6.7GM INHALER) INH PRN (05:27)
[2020-06-12] MEDS: Albuterol 200 PUFF (6.7GM INHALER) INH SCH ×3 (06:05→17:38)
[2020-06-12 06:18] LABS: #Lymphocytes 0.4 thou/uL (1.20-3.40); #Monocytes 0.1 thou/uL (0.11-0.59); #Neutrophils 5.5 thou/uL (1.40-6.50); %Eosinophils 0.2 % (0.0-10.0); %Lymphocytes 6.2 % (21.0-51.0); %Monocytes 1.1 % (0.0-10.0); %Neutrophils 92.5 % (42.0-75.0); Hemoglobin 10.5 g/dL (12.0-16.0); Mean Corpuscular HGB CONC 31.3 g/dL (32.0-36.0); Mean Corpuscular Hemoglobin 26.5 pg (27.0-31.0); Mean Corpuscular Volume 84.4 fL (78.0-98.0); Mean Platelet Volume 8.3 fL (7.4-10.4); Platelet Count 203 thou/uL (130-400); RBC Distribution Width 17.1 % (11.5-14.5); Red Blood Cell (RBC) Count 3.97 mill/uL (4.20-5.40)
[2020-06-12 06:41] LABS: Anion Gap 13 mmol/L (10-20); BUN (Urea Nitrogen) 16 mg/dL (9.8-20.1); Calc. Creatinine Clearance 51 mL/min (70-130); Calcium 9.4 mg/dL (7.8-10.44); Carbon Dioxide 36 mmol/L (23-31); Chloride 95 mmol/L (98-107); Glucose 118 mg/dL (83-110); Potassium 4.8 mmol/L (3.5-5.1); Sodium 139 mmol/L (136-145)
[2020-06-12] MEDS: Enoxaparin Sodium 40 MG/0.4 ML SYRINGE SC SCH (08:28)
[2020-06-12] MEDS: Cholecalciferol 1,000 UNITS (25 MCG) TAB PO SCH (08:29)
[2020-06-12] MEDS: Dronedarone HCl 400 MG TAB PO SCH ×2 (08:29→16:52)
[2020-06-12] MEDS: Gabapentin 100 MG CAP PO SCH ×2 (08:29→20:03)
[2020-06-12] MEDS: Aspirin Chewable 81 MG TAB PO SCH (08:29)
[2020-06-12] MEDS: Furosemide 20 MG/2 ML VIAL SLOW IVP SCH (08:29)
[2020-06-12] MEDS: Acetaminophen 325 MG TAB PO PRN (09:26)
[2020-06-12] MEDS: traMADol HCl 50 MG TAB PO PRN ×2 (11:59→16:52)
--- NOTE | 2020-06-12 13:31 | PDOC.HOSPP ---
- Subjective Encounter Date: 06/12/20 Encounter Time: 11:00 Subjective: sob is better, is awake has tremors of both Upper extremities which is chronic with likely worsening from albuterol - Objective Vital Signs & Weight: Vital Signs (12 hours) Temp Pulse Resp BP BP Pulse Ox 06/12/20 13:26 98.3 F 98 20 132/58 L 93 L 06/12/20 09:30 98.8 F 102 H 16 155/81 H 96 06/12/20 08:35 92 155/81 H 06/12/20 08:20 98.8 F 102 H 16 155/81 H 96 06/12/20 04:50 92 18 160/71 H 94 L Weight Weight 134 lb 14.4 oz Result Diagrams: 06/12/20 05:56 06/12/20 05:56 Hospitalist ROS - Medication Medications: Active Medications Generic Name Dose Route Start Last Admin Trade Name Freq PRN Reason Stop Dose Admin Acetaminophen 650 mg 06/12/20 07:26 06/12/20 09:26 Acetaminophen 325 Mg Tab PO 650 mg Q4H PRN Administration Mild Pain (1-3) Albuterol Sulfate 2 puff 06/12/20 07:00 06/12/20 11:59 Albuterol 200 Puff (6.7gm Inhaler) INH 2 puff [id number] STEFFEN Administration Aspirin 81 mg 06/12/20 09:00 06/12/20 08:29 Aspirin Chewable 81 Mg Tab PO 81 mg DAILY STEFFEN Administration Cholecalciferol 1,000 units 06/12/20 09:00 06/12/20 08:29 Cholecalciferol 1,000 Units (25 Mcg) Tab PO 1,000 units DAILY STEFFEN Administration Diltiazem HCl 240 mg 06/12/20 09:00 06/12/20 08:35 Diltiazem Hcl Cd 240 Mg Capsule PO 240 mg DAILY STEFFEN Administration Dronedarone 400 mg 06/12/20 08:00 06/12/20 08:29 Dronedarone Hcl 400 Mg Tab PO 400 mg BID-WM STEFFEN Administration Enoxaparin Sodium 40 mg 06/12/20 09:00 06/12/20 08:28 Enoxaparin Sodium 40 Mg/0.4 Ml Syringe SC 40 mg 0900 STEFFEN Administration Furosemide 20 mg 06/12/20 09:00 06/12/20 08:29 Furosemide 20 Mg/2 Ml Vial SLOW IVP 20 mg DAILY STEFFEN Administration Gabapentin 100 mg 06/12/20 09:00 06/12/20 08:29 Gabapentin 100 Mg Cap PO 100 mg BID STEFFEN Administration Pantoprazole Sodium 40 mg 06/12/20 09:00 06/12/20 08:29 Pantoprazole 40 Mg Tab PO 40 mg DAILY STEFFEN Administration Tramadol HCl 50 mg 06/12/20 07:26 06/12/20 11:59 Tramadol Hcl 50 Mg Tab PO 50 mg Q4H PRN Administration Moderate to Severe Pain (4-10) - Exam General Appearance: awake alert Eye: PERRL, anicteric sclera ENT: no oropharyngeal lesions, moist mucosa Neck: supple, no JVD Heart: RRR, no murmur Respiratory: no wheezes, rales, rhonchi Gastrointestinal: soft, non-tender, non-distended, normal bowel sounds Extremities: no cyanosis, no edema Neurological: cranial nerve grossly intact, no focal deficits Hosp A/P (1) Pneumonia due to COVID-19 virus Code(s): U07.1 - COVID-19; J12.89 - OTHER VIRAL PNEUMONIA Status: Acute (2) Acute respiratory failure with hypoxia Code(s): J96.01 - ACUTE RESPIRATORY FAILURE WITH HYPOXIA Status: Acute (3) Acute exacerbation of CHF (congestive heart failure) Code(s): I50.9 - HEART FAILURE, UNSPECIFIED Status: Acute Qualifiers: Heart failure type: diastolic Qualified Code(s): I50.33 - Acute on chronic diastolic (congestive) heart failure (4) Dyslipidemia Code(s): E78.5 - HYPERLIPIDEMIA, UNSPECIFIED Status: Chronic (5) Afib Code(s): I48.91 - UNSPECIFIED ATRIAL FIBRILLATION Status: Chronic Qualifiers: Atrial fibrillation type: paroxysmal Qualified Code(s): I48.0 - Paroxysmal atrial fibrillation (6) Anxiety Code(s): F41.9 - ANXIETY DISORDER, UNSPECIFIED Status: Chronic (7) HTN (hypertension) Code(s): I10 - ESSENTIAL (PRIMARY) HYPERTENSION Status: Chronic Qualifiers: Hypertension type: essential hypertension Qualified Code(s): I10 - Essential (primary) hypertension (8) Tremor Code(s): R25.1 - TREMOR, UNSPECIFIED Status: Chronic - Plan was +ve for covid 19 virus with pna on Apr 20, still has lung parenchymal changes with hypoxia mild chf exac with diastolic dysfunction, dc iv lasix in am prior ef of 50% in 03/2019 she got dc'd to [facility] in [place] wo home O2 from [facility] 3 days back will need home O2 on dc due to parenchymal changes from covid 19 pna which is yet to clear up continue home dose of multaq, cardizem cd, asp, nebs, neurontin and risperdal at bedtime dc plan in am if stable family is planning [facility] on monday at her [facility] facility (initially was today but is being moved now) d/w son over phone and have given complete updates, if patient were to d econdition here family is prepared for inpt hospice if needed.
[2020-06-12] MEDS: Melatonin 3 MG TAB PO SCH (20:03)
[2020-06-12] MEDS: risperiDONE 1 MG TAB PO SCH (20:03)
[2020-06-13] MEDS: Albuterol 200 PUFF (6.7GM INHALER) INH SCH ×4 (01:46→17:36)
[2020-06-13] MEDS: Aspirin Chewable 81 MG TAB PO SCH (08:06)
[2020-06-13] MEDS: Gabapentin 100 MG CAP PO SCH ×2 (08:06→20:41)
[2020-06-13] MEDS: Dronedarone HCl 400 MG TAB PO SCH ×2 (08:06→17:36)
[2020-06-13] MEDS: Enoxaparin Sodium 40 MG/0.4 ML SYRINGE SC SCH (08:07)
[2020-06-13] MEDS: Cholecalciferol 1,000 UNITS (25 MCG) TAB PO SCH (08:07)
[2020-06-13] MEDS: Furosemide 20 MG/2 ML VIAL SLOW IVP SCH (08:07)
[2020-06-13] MEDS: traMADol HCl 50 MG TAB PO PRN ×2 (12:30→20:40)
--- NOTE | 2020-06-13 14:56 | PDOC.HOSPP ---
- Subjective Encounter Date: 06/13/20 Encounter Time: 14:55 non-verbal Subjective: Ms. Villasenor was seen today in follow-up of COPD, and recent COVID infection. She has decided on Hospice care. - Objective Vital Signs & Weight: Vital Signs (12 hours) Temp Pulse Resp BP Pulse Ox 06/13/20 08:06 82 06/13/20 08:00 98.0 F 89 18 137/57 L 92 L 06/13/20 05:34 98 F 82 18 93 L 06/13/20 04:35 93 L Weight Weight 134 lb 14.4 oz I&O: 06/12/20 06/13/20 06/14/20 06:59 06:59 06:59 Intake Total 480 Balance 480 Result Diagrams: 06/12/20 05:56 06/12/20 05:56 Hospitalist ROS - Medication Medications: Active Medications Generic Name Dose Route Start Last Admin Trade Name Freq PRN Reason Stop Dose Admin Acetaminophen 650 mg 06/12/20 07:26 06/12/20 09:26 Acetaminophen 325 Mg Tab PO 650 mg Q4H PRN Administration Mild Pain (1-3) Albuterol Sulfate 2 puff 06/12/20 07:00 06/13/20 12:30 Albuterol 200 Puff (6.7gm Inhaler) INH 2 puff [id number] STEFFEN Administration Aspirin 81 mg 06/12/20 09:00 06/13/20 08:06 Aspirin Chewable 81 Mg Tab PO 81 mg DAILY STEFFEN Administration Cholecalciferol 1,000 units 06/12/20 09:00 06/13/20 08:07 Cholecalciferol 1,000 Units (25 Mcg) Tab PO 1,000 units DAILY STEFFEN Administration Diltiazem HCl 240 mg 06/12/20 09:00 06/13/20 08:06 Diltiazem Hcl Cd 240 Mg Capsule PO 240 mg DAILY STEFFEN Administration Dronedarone 400 mg 06/12/20 08:00 06/13/20 08:06 Dronedarone Hcl 400 Mg Tab PO 400 mg BID-WM STEFFEN Administration Enoxaparin Sodium 40 mg 06/12/20 09:00 06/13/20 08:07 Enoxaparin Sodium 40 Mg/0.4 Ml Syringe SC 40 mg 0900 STEFFEN Administration Furosemide 20 mg 06/12/20 09:00 06/13/20 08:07 Furosemide 20 Mg/2 Ml Vial SLOW IVP 20 mg DAILY STEFFEN Administration Gabapentin 100 mg 06/12/20 09:00 06/13/20 08:06 Gabapentin 100 Mg Cap PO 100 mg BID STEFFEN Administration Melatonin 3 mg 06/12/20 21:00 06/12/20 20:03 Melatonin 3 Mg Tab PO 3 mg HS STEFFEN Administration Pantoprazole Sodium 40 mg 06/12/20 09:00 06/13/20 08:07 Pantoprazole 40 Mg Tab PO 40 mg DAILY STEFFEN Administration Risperidone 1 mg 06/12/20 21:00 06/12/20 20:03 Risperidone 1 Mg Tab PO 1 mg HS STEFFEN Administration Tramadol HCl 50 mg 06/12/20 07:26 06/13/20 12:30 Tramadol Hcl 50 Mg Tab PO 50 mg Q4H PRN Administration Moderate to Severe Pain (4-10) - Exam Eye: PERRL, anicteric sclera Heart: RRR, no murmur, no gallops, no rubs, normal peripheral pulses Respiratory: rales (at both bases) Gastrointestinal: soft, non-tender, non-distended, normal bowel sounds, no palpable masses, no hepatomegaly Extremities: no cyanosis, 1+ LE edema Hosp A/P (1) Acute exacerbation of CHF (congestive heart failure) Code(s): I50.9 - HEART FAILURE, UNSPECIFIED Status: Acute Qualifiers: Heart failure type: diastolic Qualified Code(s): I50.33 - Acute on chronic diastolic (congestive) heart failure (2) Acute respiratory failure with hypoxia Code(s): J96.01 - ACUTE RESPIRATORY FAILURE WITH HYPOXIA Status: Acute (3) Pneumonia due to COVID-19 virus Code(s): U07.1 - COVID-19; J12.89 - OTHER VIRAL PNEUMONIA Status: Acute (4) COVID-19 Code(s): U07.1 - COVID-19 Status: Acute (5) HTN (hypertension) Code(s): I10 - ESSENTIAL (PRIMARY) HYPERTENSION Status: Chronic Qualifiers: Hypertension type: essential hypertension Qualified Code(s): I10 - Essential (primary) hypertension - Plan * Respiratory failure after recent COVID infection * Probable COPD * Generalized Deconditioning- Hospice has been arranged, and she is stable for discharge
[2020-06-13] MEDS: risperiDONE 1 MG TAB PO SCH (20:41)
[2020-06-13] MEDS: Melatonin 3 MG TAB PO SCH (20:41)
[2020-06-14] MEDS: Albuterol 200 PUFF (6.7GM INHALER) INH SCH ×3 (01:33→12:43)
[2020-06-14] MEDS: Acetaminophen 325 MG TAB PO PRN (02:28)
[2020-06-14] MEDS: traMADol HCl 50 MG TAB PO PRN ×2 (02:28→08:03)
[2020-06-14 05:33] LABS: SARS-CoV-2 MS2 Positive; SARS-CoV-2 N Gene Negative; SARS-CoV-2 S Gene Negative; SARS-CoV-2 by NAA Not Detected (NotDetected); SARS-CoV-2 orf1ab Negative
[2020-06-14] MEDS: Cholecalciferol 1,000 UNITS (25 MCG) TAB PO SCH (08:03)
[2020-06-14] MEDS: Gabapentin 100 MG CAP PO SCH (08:04)
[2020-06-14] MEDS: Enoxaparin Sodium 40 MG/0.4 ML SYRINGE SC SCH (08:04)
[2020-06-14] MEDS: Furosemide 20 MG/2 ML VIAL SLOW IVP SCH (08:04)
[2020-06-14] MEDS: Aspirin Chewable 81 MG TAB PO SCH (08:04)
[2020-06-14] MEDS: Dronedarone HCl 400 MG TAB PO SCH (08:04)
--- NOTE | 2020-06-14 12:44 | PDOC.HOSPP ---
- Subjective Encounter Date: 06/14/20 Encounter Time: 12:42 Subjective: Ms. Villasenor was seen today in follow-up of respiratory failure. She is much improved after supplemental oxygen started. - Objective Vital Signs & Weight: Vital Signs (12 hours) Temp Pulse Resp BP Pulse Ox 06/14/20 08:03 88 06/14/20 08:00 97.6 F 97 20 163/84 H 93 L 06/14/20 05:17 93 L Weight Weight 134 lb 14.4 oz I&O: 06/13/20 06/14/20 06/15/20 06:59 06:59 06:59 Intake Total 480 Balance 480 Result Diagrams: 06/12/20 05:56 06/12/20 05:56 Hospitalist ROS - Medication Medications: Active Medications Generic Name Dose Route Start Last Admin Trade Name Freq PRN Reason Stop Dose Admin Acetaminophen 650 mg 06/12/20 07:26 06/14/20 02:28 Acetaminophen 325 Mg Tab PO 650 mg Q4H PRN Administration Mild Pain (1-3) Albuterol Sulfate 2 puff 06/12/20 07:00 06/14/20 05:26 Albuterol 200 Puff (6.7gm Inhaler) INH 2 puff [id number] STEFFEN Administration Aspirin 81 mg 06/12/20 09:00 06/14/20 08:04 Aspirin Chewable 81 Mg Tab PO 81 mg DAILY STEFFEN Administration Cholecalciferol 1,000 units 06/12/20 09:00 06/14/20 08:03 Cholecalciferol 1,000 Units (25 Mcg) Tab PO 1,000 units DAILY STEFFEN Administration Diltiazem HCl 240 mg 06/12/20 09:00 06/14/20 08:03 Diltiazem Hcl Cd 240 Mg Capsule PO 240 mg DAILY STEFFEN Administration Dronedarone 400 mg 06/12/20 08:00 06/14/20 08:04 Dronedarone Hcl 400 Mg Tab PO 400 mg BID-WM STEFFEN Administration Enoxaparin Sodium 40 mg 06/12/20 09:00 06/14/20 08:04 Enoxaparin Sodium 40 Mg/0.4 Ml Syringe SC 40 mg 0900 STEFFEN Administration Furosemide 20 mg 06/12/20 09:00 06/14/20 08:04 Furosemide 20 Mg/2 Ml Vial SLOW IVP 20 mg DAILY STEFFEN Administration Gabapentin 100 mg 06/12/20 09:00 06/14/20 08:04 Gabapentin 100 Mg Cap PO 100 mg BID STEFFEN Administration Melatonin 3 mg 06/12/20 21:00 06/13/20 20:41 Melatonin 3 Mg Tab PO 3 mg HS STEFFEN Administration Pantoprazole Sodium 40 mg 06/12/20 09:00 06/14/20 08:04 Pantoprazole 40 Mg Tab PO 40 mg DAILY STEFFEN Administration Risperidone 1 mg 06/12/20 21:00 06/13/20 20:41 Risperidone 1 Mg Tab PO 1 mg HS STEFFEN Administration Tramadol HCl 50 mg 06/12/20 07:26 06/14/20 08:03 Tramadol Hcl 50 Mg Tab PO 50 mg Q4H PRN Administration Moderate to Severe Pain (4-10) - Exam Eye: PERRL, anicteric sclera Heart: RRR, no murmur, no gallops, no rubs, normal peripheral pulses Respiratory: rhonchi Gastrointestinal: soft, non-tender, non-distended, normal bowel sounds, no palpable masses, no hepatomegaly Extremities: no cyanosis, no edema Hosp A/P (1) Acute exacerbation of CHF (congestive heart failure) Code(s): I50.9 - HEART FAILURE, UNSPECIFIED Status: Acute Qualifiers: Heart failure type: diastolic Qualified Code(s): I50.33 - Acute on chronic diastolic (congestive) heart failure (2) Acute respiratory failure with hypoxia Code(s): J96.01 - ACUTE RESPIRATORY FAILURE WITH HYPOXIA Status: Acute (3) Pneumonia due to COVID-19 virus Code(s): U07.1 - COVID-19; J12.89 - OTHER VIRAL PNEUMONIA Status: Acute (4) COVID-19 Code(s): U07.1 - COVID-19 Status: Acute (5) HTN (hypertension) Code(s): I10 - ESSENTIAL (PRIMARY) HYPERTENSION Status: Chronic Qualifiers: Hypertension type: essential hypertension Qualified Code(s): I10 - Essential (primary) hypertension - Plan * Respiratory failure after recent COVID infection * Repeat screen was negative * Probable COPD * Generalized Deconditioning- Hospice has been arranged, and she is stable for discharge
[2020-06-14 15:11] VITALS: BP 154/72; TEMP 97.7
--- NOTE | 2020-06-14 17:18 | PDOC.DS.DS ---
Provider - Provider Date of Admission: 06/12/20 16:27 Date of Discharge: 06/14/20 Admitting Provider: Maicol Green MD Primary Care Physician: Percy Valles MD Course - Hospital Course Hospital Course: Ms. Villasenor is an 89-year-old female that has a history of atrial fibrillation possible COPD and hypertension. She was recently diagnosed with COVID-19 infection in early April. She was hospitalized with this and was able to be successfully fully discharged to a nursing facility. There she was undergoing physical therapy but she continued to have lingering symptoms of shortness of breath. She became very deconditioned. And as a result came to our facility for evaluation. She was found to be hypoxic and was evaluated for oxygen. Due to her severe deconditioning and advanced age the patient as well as the patient's family made the decision to transition to hospice care. Once this was arranged and her home oxygen was arranged she was able to be discharged to the nursing facility with hospice care. Resuscitation Status: 06/12/20 00:16 Resuscitation Status Routine Resuscitation Status: DNAR: NO Resuscitation Discussed with: son and she has an out of the hospital DNR - Labs Lab Results: 06/12/20 05:56 06/12/20 05:56 - Physical Exam Vitals: Vital Signs (12 hours) Temp Pulse Resp BP Pulse Ox 06/14/20 15:10 97.7 F 82 20 154/72 H 94 L 06/14/20 08:03 88 06/14/20 08:00 97.6 F 97 20 163/84 H 93 L Weight Weight 134 lb 14.4 oz Physical Exam: The patient was seen and examined on the day of discharge. Problem - Problem (1) Acute exacerbation of CHF (congestive heart failure) Code(s): I50.9 - HEART FAILURE, UNSPECIFIED Status: Acute Qualifiers: Heart failure type: diastolic Qualified Code(s): I50.33 - Acute on chronic diastolic (congestive) heart failure (2) Acute respiratory failure with hypoxia Code(s): J96.01 - ACUTE RESPIRATORY FAILURE WITH HYPOXIA Status: Acute (3) Pneumonia due to COVID-19 virus Code(s): U07.1 - COVID-19; J12.89 - OTHER VIRAL PNEUMONIA Status: Acute (4) COVID-19 Code(s): U07.1 - COVID-19 Status: Acute (5) HTN (hypertension) Code(s): I10 - ESSENTIAL (PRIMARY) HYPERTENSION Status: Chronic Qualifiers: Hypertension type: essential hypertension Qualified Code(s): I10 - Essential (primary) hypertension Plan - Discharge Medications Home Medications: Medication Instructions Recorded Confirmed Type Aspirin Chewable [Aspirin Chewable 81 mg PO DAILY 08/03/13 06/12/20 History Tablet] Cholecalciferol (Vitamin D3) 1,000 unit PO DAILY 08/03/13 06/12/20 History [Vitamin D3] Gabapentin 100 mg PO BID 08/03/13 06/12/20 History Loratadine [Claritin] 10 mg PO DAILY 08/03/13 06/12/20 History Omeprazole [Prilosec] 20 mg PO DAILY 08/03/13 06/12/20 History Meclizine HCl [Antivert] 25 mg PO TIDPRN PRN #0 tab 06/02/15 06/12/20 Rx Fluticasone Propionate [Flonase 50 mcg NASAL DAILY 04/13/19 06/12/20 History Allergy Relief] risperiDONE [RisperDAL] 1 mg PO HS 04/13/19 06/12/20 History traMADol HCl [Tramadol HCl] 1 tab PO Q4H PRN 04/13/19 06/12/20 History Diltiazem HCl [Cardizem CD] 240 mg PO DAILY #30 cap 04/14/19 06/12/20 Rx Dronedarone HCl [Multaq] 400 mg PO BID-WM #30 tab 04/14/19 06/12/20 Rx Furosemide [Lasix] 20 mg PO DAILY 04/27/20 06/12/20 History Melatonin 3 mg PO HS 04/27/20 06/12/20 History Acetaminophen [Tylenol Regular 650 mg PO Q4H PRN 06/12/20 06/12/20 History Strength] Allergies: orange juice [[place] Juice] Allergy (Unknown, Verified 04/27/20 00:04) alendronate sodium [From Fosamax] Allergy (Verified 04/27/20 00:04) codeine Allergy (Verified 04/27/20 00:04) ibandronate sodium [From Boniva] Allergy (Verified 04/27/20 00:04) metoprolol Allergy (Verified 04/27/20 00:04) Penicillins Allergy (Verified 04/27/20 00:04) phenobarbital Allergy (Verified 04/27/20 00:04) PER ER RECORD pravastatin Allergy (Verified 04/27/20 00:04) risedronate sodium [From Actonel] Allergy (Verified 04/27/20 00:04) - Discharge Instructions Discharge Instructions:: D/C home with [facility] Activity:: Activity as Tolerated Nourishment:: Regular Diet - Follow up Plan Referrals: [facility] [Outside] Percy Valles MD [Primary Care Provider] - Disposition: HOSPICE-HOME Quality - Care Measures CORE MEASURES:: N/A
--- NOTE | 2020-06-17 03:26 | PQF ---
Dear : Pako Collins Date 06/17/2020 Please exercise your independent, professional judgment in responding to the clarification form. Clinical indicators are provided on the bottom of this form for your review Can you please further clarify the diagnosis of the patient? Please check appropriate box(es): COVID 19 virus diagnosis Validation: [ ] COVID-19 is a current condition [ ] COVID-19 sequela [ X ] History of COVID-19 which is resolved [ ] Other diagnosis please specify [ ] Unable to determine Physician Signature: Date/Time: For continuity of documentation, please document condition throughout progress notes and discharge summary. Thank You. To be completed by CDI/Coding staff for physician review: Present Clinical Indicators - Signs / Symptoms / Labs Results and Location in Medical Record [ x ] Hx of COVID pneumonia that has improved with a negative test done this week at her long term ED Provider pg.3 [ x ] Hypoxia ED Provider pg.3 [ x ] Pneumonia due to COVID 19 virus, status: Acute Hospitalist PN pg.3 [ x ] She was diagnosed with COVID19 approximately a month ago H and P pg.1 [ x ] Respiratory failure after recent COVID infection Hospitalist PN pg.4 06/14 [ x ] SARS COV-2 not detected Serology 06/13/20 [ x ] Chest Xray: Bilateral perihilar air space opacity suspcious for edema Chest Xray 06/11 [ x ] WBC: 06/11=7.9 06/12=6.0 Laboratory 06/11 Present Risk Factors Results and Location in Medical Record [ x ] Acute respiratory failure Hospitalist PN pg.3 [ x ] Acute CHF exacerbation Hospitalist PN pg.3 [ x ] AFIB Hospitalist PN pg.3 [ x ] COPD H and P pg.1 [ x ] 89 years old female H and P pg.1 Present Treatments Results and Location in Medical Record [ x ] O2 supplementation H and P pg.1 [ x ] DuoNeb 3ml Neb MAR [ x ] Albuterol sulfate 2full INH MAR [ x ] IV fluids MAR CDS/Location Worker Signature: JoseHaroon schillinggisele Braden Phone #: ext [phone] Date 06/17/2020 This is a permanent part of the Medical Record [facility]
== END 2020-06-14 15:12 | disposition hospice, home (50) | DRG 291 ==
LOC: ERS 21:00 → T4-A 22:24 → OBSVTOIN 06-12 16:27
PROVIDERS: ADMIT Internal Medicine; ATTEND Internal Medicine
DX: I11.0 Hypertensive heart disease with heart failure (principal); J96.01 Acute respiratory failure with hypoxia; Z66 Do not resuscitate; I50.33 Acute on chronic diastolic (congestive) heart failure; Z86.19 Personal history of other infectious and parasitic diseases; I48.91 Unspecified atrial fibrillation; E78.00 Pure hypercholesterolemia, unspecified; G25.2 Other specified forms of tremor; E78.5 Hyperlipidemia, unspecified; E03.9 Hypothyroidism, unspecified; M81.0 Age-related osteoporosis without current pathological fracture; M41.9 Scoliosis, unspecified; Z90.710 Acquired absence of both cervix and uterus; Z90.49 Acquired absence of other specified parts of digestive tract; Z88.0 Allergy status to penicillin; Z88.5 Allergy status to narcotic agent; Z88.8 Allergy status to other drugs, medicaments and biological substances; Z79.899 Other long term (current) drug therapy; Z79.82 Long term (current) use of aspirin
CPT/HCPCS: 36415; 71045; 80048; 80053; 83880; 84484; 85025; 87635; 93005; 96372; 96374; G0378; J1650; J1940; U0003